=== PATIENT | male | born 1970 | race Caucasian/White ===

== ENCOUNTER 2020-08-23 21:43 | Inpatient (IN) | payer BC ==
[~2020-08-23] VITALS: Ht 175.3 cm; Wt 133.4 kg
[2020-08-23 22:34] LABS: BASO % 0 % (0-3); EOS % 0 % (0-3); HEMATOCRIT 41.5 % (39.0-53.0); HEMOGLOBIN 14.2 g/dL (13.0-17.5); LYMPH # 0.9 x10^3/uL (1.0-4.8); LYMPH % 9 % (24-48); MEAN CORPUSCULAR HEMOGLOBIN 29 pg (25-35); MEAN CORPUSCULAR HGB CONC 34 g/dL (31-37); MEAN CORPUSCULAR VOLUME 84 fL (79-100); MONO # 0.4 x10^3/uL (0.0-1.1); MONO % 4 % (0-9); NEUT # 9.1 x10^3/uL (1.8-7.7); NEUT % 87 % (31-73); PLATELET COUNT 244 x10^3/uL (140-400); RED BLOOD COUNT 4.93 x10^6/uL (4.30-5.70); RED CELL DISTRIBUTION WIDTH 13.6 % (11.5-14.5); WHITE BLOOD COUNT 10.4 x10^3/uL (4.0-11.0)
[2020-08-23 22:45] LABS: CALCIUM 8.7 mg/dL (8.5-10.1); CREATININE 1.1 mg/dL (0.7-1.3); GFR 70.9
[2020-08-23 22:51] LABS: ALBUMIN 2.9 g/dL (3.4-5.0); ALBUMIN/GLOBULIN RATIO 0.6 (1.0-1.7); TOTAL BILIRUBIN 0.5 mg/dL (0.2-1.0); TOTAL PROTEIN 7.5 g/dL (6.4-8.2)
[2020-08-23 22:55] LABS: % BANDS 1 % (0-9); % LYMPHS 8 % (24-48); % MONOS 3 % (0-10); % SEGS 88 % (35-66); PLT ESTIMATE ADEQUATE (ADEQUATE)
--- NOTE | 2020-08-23 22:56 | RAD ---
INDICATION: Reason: SHORT OF BREATH COVID 19 + / Spl. Instructions: / History: COMPARISON: None. FINDINGS: Single view of chest obtained. Hypoexpanded lungs. Multifocal opacities throughout the bilateral lungs. Cardiomediastinal silhouette is unremarkable. IMPRESSION: * Moderate pulmonic opacities bilaterally which could be from multifocal infiltrate. Edema could als o have a similar appearance. Electronically signed by: Tristen Duarte MD (08/23/2020 10:53 PM) [id number]
[2020-08-23 22:59] LABS: BASE EXCESS COOX -2 mmol/L (-3-3); HCO3 COOX 21 mmol/L (21-28); METHEMOGLOBIN 0.3 % (0.0-1.9); OXYHEMOGLOBIN 88.6 %; PCO2 COOX 32 mmHg (35-46); PO2 COOX 54 mmHg (75-108); SAT O2 COOX 89 % (92-99)
[2020-08-23] MEDS ORDERED: cefTRIAXone IV Push 1 GM VIAL. IVP ONE (23:45)
[2020-08-23] MEDS ORDERED: DEXAMETHASONE SOD PHOS 20 MG/5 ML VIAL. IV ONE (23:45)
[2020-08-23] MEDS ORDERED: IOHEXOL 350 MG/ML 100 ML VIAL. IV ONE (23:45)
[2020-08-23] MEDS ORDERED: CONTRAST GIVEN. MC PRN (23:45)
[2020-08-23] MEDS ORDERED: AZITHRMYCN 500MG IVPB FOR OMNI 250 ML IV ONE (23:45)
[2020-08-24] VITALS (7 sets, daily range): BP systolic 106–144; BP diastolic 68–87
--- NOTE | 2020-08-24 00:10 | RAD ---
INDICATION: Reason: POSITIVE D-DIMER, HYPOXIA, SHORT OF BREATH / Spl. Instructions: / History: COMPARISON: None. TECHNIQUE: Axial CT images obtained through the chest. Intravenous contrast utilized. Angiogram 3D images proce ssed per protocol. One or more of the following individualized dose reduction techniques were utilized for this examinat ion: 1. Automated exposure control; 2. Adjustment of the mA and/or kV according to patient size; 3 . Use of iterative reconstruction technique. FINDINGS: Multifocal opacities throughout the bilateral lungs including groundglass and nodular component. The liver is partially seen and appears low density which can be seen with fatty infiltration. There are some prominent lymph nodes within the mediastinum and hilum. No evidence of thoracic aortic aneurysm with portion of ascending thoracic aorta obscured by motion. Nondiagnostic evaluation for pulmonary embolus secondary to motion and minimal contrast within the pu lmonary arteries. Degenerative changes of the spine. IMPRESSION: Multifocal opacities throughout the bilateral lungs. Differential considerations would include bilate ral infection including from viral etiology. A component of edema is not excluded given the groundgla ss component. Liver is low density which can be seen with fatty infiltration. Nondiagnostic evaluation for pulmonary embolus secondary to almost no contrast within the pulmonary a rteries and motion. Prominent lymph nodes in the mediastinum and hilum could be reactive to the pulmonic process Electronically signed by: Tristen Duarte MD (08/24/2020 12:08 AM) [id number]
[2020-08-24] MEDS ORDERED: ONDANSETRON PF 4 MG/2 ML VIAL. IVP ONE (00:30)
[2020-08-24] MEDS ORDERED: diphenhydrAMINE 50 MG/ML VIAL IVP ONE (00:30)
--- NOTE | 2020-08-24 00:48 | PHYS DOC ---
General Adult EDM: Chief Complaint: SHORTNESS OF BREATH HPI: HPI: Patient is a 50 year old male presents to the emergency department stating that he tested positive for the COVID-19 virus on 13 August, patient states that he felt general malaise with fevers and cough for the first week but then noticed he started getting worse. Patient states that he this morning he felt at is worse, stated that he felt like he could not breathe, was constantly having a nonproductive cough, hurt his chest when he coughed. Patient states he felt a little nauseated, and he came into the emergency department for evaluation. Patient denies chest pain when he is not coughing, denies abdominal pain, diarrhea, nasal congestion, or chest congestion. Patient states he has had off-and-on fever and chills at home however he has not taken his temperature when he was at home. Patient denies any rashes of his skin, denies any loss of taste or loss of smell. Patient states he has had off-and-on headaches however does not have a headache at this time. Review of Systems: Review of Systems: 14 body systems of review of systems have been reviewed. See HPI for pertinent positives and negative responses, otherwise all other systems are negative, nonpertinent or noncontributory. Heart Score: HEART Score for Chest Pain: HEART Score for Chest Pain Response (Comments) Value History Slighlty/Non-Suspicious 0 ECG Normal 0 Age >45 - < 65 1 Risk Factors No Risk Factors 0 Troponin < Normal Limit 0 Total 1 Risk Factors: Risk Factors: DM, Current or recent (<one month) smoker, HTN, HLP, family history of CAD, obesity. Risk Scores: Score 0 - 3: 2.5% MACE over next 6 weeks - Discharge Home Score 4 - 6: 20.3% MACE over next 6 weeks - Admit for Clinical Observation Score 7 - 10: 72.7% MACE over next 6 weeks - Early Invasive Strategies Current Medications: Current Medications Medications (Trade) Dose Ordered Sig/Rosa Start Time Stop Time Status Last Admin Dose Admin Azithromycin 250 ml @ 250 mls/hr 1X ONCE 08/23/20 23:45 08/24/20 00:44 DC 08/24/20 00:29 250 MLS/HR Ceftriaxone Sodium (Rocephin) 1 gm 1X ONCE 08/23/20 23:45 08/23/20 23:46 DC 08/24/20 00:28 1 GM Dexamethasone Sodium Phosphate (Decadron) 10 mg 1X ONCE 08/23/20 23:45 08/23/20 23:46 DC 08/24/20 00:28 10 MG Diphenhydramine HCl (Benadryl) 25 mg 1X ONCE 08/24/20 00:30 08/24/20 00:31 DC 08/24/20 00:28 25 MG Info (CONTRAST GIVEN -- Rx MONITORING) 1 each PRN DAILY PRN 08/23/20 23:45 08/25/20 23:44 Iohexol (Omnipaque 350 Mg/ml) 100 ml 1X ONCE 08/23/20 23:45 08/23/20 23:46 DC 08/23/20 23:55 100 ML Ondansetron HCl (Zofran) 4 mg 1X ONCE 08/24/20 00:30 08/24/20 00:31 DC 08/24/20 00:29 4 MG Allergies: Allergies: Allergies Coded Allergies Type Severity Reaction Last Updated Verified Penicillins Allergy Severe Anaphylaxis 08/23/20 Yes Physical Exam: PE: Constitutional: Well developed, well nourished, no acute distress, non-toxic appearance. Patient in mild respiratory distress with cough during physical examination. Patient's O2 sat was 85 on room air and was placed on 2 L per nasal cannula. HENT: Normocephalic, atraumatic, bilateral external ears normal, oropharynx moist, no oral exudates, nose normal. Eyes: PERRLA, EOMI, conjunctiva normal, no discharge. Neck: Normal range of motion, no tenderness, supple, no stridor. Cardiovascular:Heart rate regular rhythm, no murmur, heart sounds S1-S2. Lungs & Thorax: Bilateral breath sounds diminished in all lung kee, no other adventitious lung sounds appreciated. Abdomen: Bowel sounds normal, soft, no tenderness, no masses, no pulsatile masses. Skin: Warm, dry, no erythema, no rash. Back: No tenderness, no CVA tenderness. Extremities: No tenderness, no cyanosis, no clubbing, ROM intact, no edema. Neurologic: Alert and oriented X 3, normal motor function, normal sensory function, no focal deficits noted. Psychologic: Affect normal, judgement normal, mood normal. Current Patient Data: Labs: Laboratory Tests Test 08/23/20 22:20 08/23/20 22:45 White Blood Count 10.4 x10^3/uL (4.0-11.0) Red Blood Count 4.93 x10^6/uL (4.30-5.70) Hemoglobin 14.2 g/dL (13.0-17.5) Hematocrit 41.5 % (39.0-53.0) Mean Corpuscular Volume 84 fL (79-100) Mean Corpuscular Hemoglobin 29 pg (25-35) Mean Corpuscular Hemoglobin Concent 34 g/dL (31-37) Red Cell Distribution Width 13.6 % (11.5-14.5) Platelet Count 244 x10^3/uL (140-400) Neutrophils (%) (Auto) 87 % (31-73) H Lymphocytes (%) (Auto) 9 % (24-48) L Monocytes (%) (Auto) 4 % (0-9) Eosinophils (%) (Auto) 0 % (0-3) Basophils (%) (Auto) 0 % (0-3) Neutrophils # (Auto) 9.1 x10^3/uL (1.8-7.7) H Lymphocytes # (Auto) 0.9 x10^3/uL (1.0-4.8) L Monocytes # (Auto) 0.4 x10^3/uL (0.0-1.1) Eosinophils # (Auto) 0.0 x10^3/uL (0.0-0.7) Basophils # (Auto) 0.0 x10^3/uL (0.0-0.2) Segmented Neutrophils % 88 % (35-66) H Band Neutrophils % 1 % (0-9) Lymphocytes % 8 % (24-48) L Monocytes % 3 % (0-10) Platelet Estimate Adequate (ADEQUATE) D-Dimer (Doreen) 1.24 ug/mlFEU (0.00-0.50) H Sodium Level 142 mmol/L (136-145) Potassium Level 3.0 mmol/L (3.5-5.1) L Chloride Level 104 mmol/L (98-107) Carbon Dioxide Level 24 mmol/L (21-32) Anion Gap 14 (6-14) Blood Urea Nitrogen 18 mg/dL (8-26) Creatinine 1.1 mg/dL (0.7-1.3) Estimated GFR (Cockcroft-Gault) 70.9 BUN/Creatinine Ratio 16 (6-20) Glucose Level 168 mg/dL (70-99) H Lactic Acid Level 1.7 mmol/L (0.4-2.0) Calcium Level 8.7 mg/dL (8.5-10.1) Total Bilirubin 0.5 mg/dL (0.2-1.0) Aspartate Amino Transferase (AST) 27 U/L (15-37) Alanine Aminotransferase (ALT) 35 U/L (16-63) Alkaline Phosphatase 70 U/L (46-116) Troponin I Quantitative < 0.017 ng/mL (0.000-0.055) QX-Ryk-T-Type Natriuretic Peptide 61 pg/mL (0-124) Total Protein 7.5 g/dL (6.4-8.2) Albumin 2.9 g/dL (3.4-5.0) L Albumin/Globulin Ratio 0.6 (1.0-1.7) L O2 Saturation 89 % (92-99) L Arterial Blood pH 7.44 (7.35-7.45) Arterial Blood pCO2 at Patient Temp 32 mmHg (35-46) L Arterial Blood pO2 at Patient Temp 54 mmHg (75-108) L Arterial Blood HCO3 21 mmol/L (21-28) Arterial Blood Base Excess -2 mmol/L (-3-3) Oxyhemoglobin 88.6 % Methemoglobin 0.3 % (0.0-1.9) Carbon Monoxide, Quantitative 0.2 % (0.0-1.9) FiO2 28 (2l nc) Laboratory Tests 08/23/20 22:20 Laboratory Tests 08/23/20 22:20 Vital Signs: Vital Signs Date Time Temp Pulse Resp B/P (MAP) Pulse Ox O2 Delivery O2 Flow Rate FiO2 08/23/20 22:36 104 20 136/73 (94) 92 Nasal Cannula 2.0 EKG: EKG: EKG performed at 2213 per ED nursing staff, sinus tachycardia without other ectopy, WI interval 0.128, QTc interval 0.442, no acute STEMI, no ACS, no acute ischemia appreciated, EKG interpreted by ED attending physician Dr. Elizalde. Radiology/Procedures: Radiology/Procedures: PATIENT: PARMINDER LROENZO JACCOUNT: [id number] : 1970 LOCATION: ER AGE: 50 SEX: M EXAM STATUS: REG ER ORD. PHYSICIAN: AUREA ELIZALDE APRN REASON: POSITIVE D-DIMER, HYPOXIA, SHORT OF BREATH PROCEDURE: CT ANGIOGRAPHY CHEST INDICATION: Reason: POSITIVE D-DIMER, HYPOXIA, SHORT OF BREATH / Spl. Instructions: / History: COMPARISON: None. TECHNIQUE: Axial CT images obtained through the chest. Intravenous contrast utilized. Angiogram 3D images processed per protocol. One or more of the following individualized dose reduction techniques were utilized for this examination: 1. Automated exposure control; 2. Adjustment of the mA and/or kV according to patient size; 3. Use of iterative reconstruction technique. FINDINGS: Multifocal opacities throughout the bilateral lungs including groundglass and nodular component. The liver is partially seen and appears low density which can be seen with fatty infiltration. There are some prominent lymph nodes within the mediastinum and hilum. No evidence of thoracic aortic aneurysm with portion of ascending thoracic aorta obscured by motion. Nondiagnostic evaluation for pulmonary embolus secondary to motion and minimal contrast within the pulmonary arteries. Degenerative changes of the spine. IMPRESSION: Multifocal opacities throughout the bilateral lungs. Differential considerations would include bilateral infection including from viral etiology. A component of edema is not excluded given the groundglass component. Liver is low density which can be seen with fatty infiltration. Nondiagnostic evaluation for pulmonary embolus secondary to almost no contrast within the pulmonary arteries and motion. Prominent lymph nodes in the mediastinum and hilum could be reactive to the pulmonic process Electronically signed by: Belen Edwards MD (08/24/2020 12:08 AM) [id number] DICTATED and SIGNED BY: BELEN EDWARDS MD DATE: 08/23/20 [id number] PATIENT: PARMINDER LORENZOCOUNT: [id number] : 1970 LOCATION: ER AGE: 50 SEX: M EXAM STATUS: REG ER ORD. PHYSICIAN: AUREA ELIZALDE APRN REASON: SHORT OF BREATH COVID 19 + PROCEDURE: CHEST AP ONLY INDICATION: Reason: SHORT OF BREATH COVID 19 + / Spl. Instructions: / History: COMPARISON: None. FINDINGS: Single view of chest obtained. Hypoexpanded lungs. Multifocal opacities throughout the bilateral lungs. Cardiomediastinal silhouette is unremarkable. IMPRESSION: * Moderate pulmonic opacities bilaterally which could be from multifocal infiltrate. Edema could also have a similar appearance. Electronically signed by: Belen Edwards MD (08/23/2020 10:53 PM) [id number] DICTATED and SIGNED BY: BELEN EDWARDS MD DATE: 08/23/20 [id number] Course & Med Decision Making: Course & Med Decision Making Pertinent Labs and Imaging studies reviewed. (See chart for details) 52-year-old male, vital signs reviewed, presents emergency department for worsening symptoms of his COVID-19 virus that he was diagnosed with on 13 August 2020. ER work-up was initiated: EKG, cardiac enzymes, CBC, CMP, D- dimer, blood cultures x2, lactic acid. 1 view chest x-ray. Patient's lactic acid negative, D-dimer however was positive and elevated, a CT angio chest was ordered. 1 view chest x-ray concerning for bilateral lobe pneumonia. Patient started on 10 mg Decadron IV, 1 g of Rocephin IV, 500 mg IV Zithromax. Patient had an allergy 20 years ago to penicillin, is unsure whether it was anaphylaxis or not, patient denied having breathing problems with this allergic reaction as far she can recall, related to this the patient was pretreated with 25 mg IV Benadryl prior to IV Rocephin given. Patient's ABG concerning PO2 of 53.5 on 2 L with an O2 sat of 97% per nasal cannula, patient's O2 administration was increased to nonrebreather mask. CT angio chest was inconclusive for pulmonary embolus, discussed case with ED attending Dr. Elizalde who agreed patient should be admitted to the hospital for community-acquired pneumonia, COVID-19 positive, hypoxia. Patient was admitted to med-telemetry under HIMS Dr. Thompson who will assume care at this time. Patient was COVID-19 positive, at all times when around patient I wore N95 mask, goggles, face shield, PPE protective gown and gloves, there was a air purifier in the room. Dragon Disclaimer: Dragon Disclaimer: This electronic medical record was generated, in whole or in part, using a voice recognition dictation system. Departure Departure Impression: Primary Impression: COVID-19 Additional Impressions: Hypoxia Community acquired pneumonia Qualified Codes: J18.9 - Pneumonia, unspecified organism Bilateral pneumonia Qualified Codes: J18.9 - Pneumonia, unspecified organism Disposition: ADMITTED INPT THIS HOSP Admitting Physician[facility] Condition: GUARDED Referrals: NO PCP (PCP) AUREA ELIZALDE APRN Aug 24, 2020 00:48
[2020-08-24] MEDS: fentaNYL PF VIAL 100 MCG/2 ML VIAL IVP PRN ×3 (01:12→14:23)
[2020-08-24] MEDS ORDERED: MAGNESIUM HYDROXIDE 2,400 MG/30 ML ORAL.SUSP. PO PRN (08:45)
[2020-08-24] MEDS ORDERED: ONDANSETRON PF 4 MG/2 ML VIAL. IVP PRN (08:45)
[2020-08-24] MEDS ORDERED: BISACODYL 10 MG SUPP.RECT. PR PRN (08:45)
[2020-08-24] MEDS ORDERED: CALCIUM CARBONATE 500 MG TAB.CHEW PO PRN (08:45)
[2020-08-24] MEDS ORDERED: LACTULOSE 20 GM/30 ML SOLUTION. PO PRN (08:45)
[2020-08-24] MEDS ORDERED: MAG HYDROX/ALUMINUM HYD/SIMETH 30 ML ORAL.SUSP PO PRN (08:45)
[2020-08-24] MEDS ORDERED: ZOLPIDEM 5 MG TABLET. PO PRN (08:45)
[2020-08-24] MEDS: SENNOSIDES/DOCUSATE 8.6/50MG TABLET. PO SCH ×2 (10:12→20:57)
[2020-08-24] MEDS: CHOLECALCIFEROL (VITAMIN D3) 1,000 UNIT TABLET PO SCH (10:12)
[2020-08-24] MEDS: ASCORBIC ACID 500 MG TABLET PO SCH ×3 (10:12→20:57)
[2020-08-24] MEDS: ZINC SULFATE 220 MG CAPSULE. PO SCH (10:12)
[2020-08-24] MEDS: ENOXAPARIN 40 MG/0.4 ML SYRINGE. SQ SCH ×2 (10:13→20:57)
--- NOTE | 2020-08-24 11:28 | PDOC1 ---
History and Physical Date of Admission Date of Admission August 24, 2020 Identification/Chief Complaint Chief Complaint I have Covid Source Source: Chart review, Patient History of Present Illness History of Present Illness Patient is a 50-year-old gentleman who was in his usual state of health until approximately August 13 even a couple of days prior to that he felt generalized malaise headache upper respiratory tract infection symptoms finally got tested for COVID-19 and his result came back positive on August 13. The patient was given supportive measures at home and he tried to self medicate with Tylenol vitamins and staying well-hydrated nevertheless the day prior to his admission he started complaining of worsening cough he had not required oxygen at home but after a coughing spell which brought upon purulent looking mucus his oxygen levels that he had been checking at home and had been staying in the 95% range dropped into the 70s reason why he decided to come to our emergency department for further evaluation and treatment. Given the acuity of his presentation we are asked to admit since the patient is requiring 15 L of oxygen at this point. The patient denies any slurred speech no dysphagia odynophagia no focal neurological deficits no chest pain palpitations, worsening shortness of breath has been reported, he denies nausea but due to the coughing spell he vomited on one occasion. No hematemesis no hematochezia no black tarry stools have been reported no urinary symptoms no other complaints voiced. All concerns addressed to the best my abilities plan of care explained in detail reassurance provided Past Medical History Past Medical History No past medical history Past Surgical History Past Surgical History: No pertinent history Family History Family History: No Significant Social History Smoke: No ALCOHOL: none Drugs: None Current Problem List Problem List Problems Medical Problems: (1) Bilateral pneumonia Status: Acute (2) Community acquired pneumonia Status: Acute (3) COVID-19 Status: Acute (4) Hypoxia Status: Acute Current Medications Current Medications Current Medications Medications (Trade) Dose Ordered Sig/Rosa Start Time Stop Time Status Last Admin Dose Admin Al Hydroxide/Mg Hydroxide (Mylanta Plus Xs) 30 ml PRN Q3HRS PRN 08/24/20 08:45 Ascorbic Acid (Vitamin C) 500 mg TID 08/24/20 09:00 08/24/20 10:12 500 MG Azithromycin 250 ml @ 250 mls/hr 1X ONCE 08/23/20 23:45 08/24/20 00:44 DC 08/24/20 00:29 250 MLS/HR Azithromycin 500 mg/Sodium Chloride 250 ml @ 250 mls/hr Q24H 08/24/20 22:00 08/27/20 21:59 Bisacodyl (Dulcolax Supp) 10 mg PRN DAILY PRN 08/24/20 08:45 Calcium Carbonate/ Glycine (Tums) 500 mg PRN Q3HRS PRN 08/24/20 08:45 Ceftriaxone Sodium (Rocephin) 1 gm Q24H 08/24/20 22:00 Dexamethasone Sodium Phosphate (Decadron) 10 mg 1X ONCE 08/23/20 23:45 08/23/20 23:46 DC 08/24/20 00:28 10 MG Diphenhydramine HCl (Benadryl) 25 mg 1X ONCE 08/24/20 00:30 08/24/20 00:31 DC 08/24/20 00:28 25 MG Enoxaparin Sodium (Lovenox 40mg Syringe) 40 mg Q12H 08/24/20 09:00 08/24/20 10:13 40 MG Fentanyl Citrate (Fentanyl 2ml Vial) 50 mcg PRN Q4HRS PRN 08/24/20 01:00 08/24/20 10:13 50 MCG Info (CONTRAST GIVEN -- Rx MONITORING) 1 each PRN DAILY PRN 08/23/20 23:45 08/25/20 23:44 Iohexol (Omnipaque 350 Mg/ml) 100 ml 1X ONCE 08/23/20 23:45 08/23/20 23:46 DC 08/23/20 23:55 100 ML Lactulose (Lactulose) 20 gm PRN Q12HR PRN 08/24/20 08:45 Magnesium Hydroxide (Milk Of Magnesia) 2,400 mg PRN Q12HR PRN 08/24/20 08:45 Ondansetron HCl (Zofran) 4 mg PRN Q6HRS PRN 08/24/20 08:45 Senna/Docusate Sodium (Senna Plus) 1 tab BID 08/24/20 09:00 08/24/20 10:12 1 TAB Vitamin D (Vitamin D3) 2,000 unit DAILY 08/24/20 09:00 08/24/20 10:12 2,000 UNIT Zinc Sulfate (Orazinc) 220 mg DAILY 08/24/20 09:00 08/24/20 10:12 220 MG Zolpidem Tartrate (Ambien) 5 mg PRN QHS PRN 08/24/20 08:45 Allergies Allergies Allergies Coded Allergies Type Severity Reaction Last Updated Verified Penicillins Allergy Severe Anaphylaxis 08/23/20 Yes ROS Review of System CONSTITUTIONAL: No fever or chills EYES: No recent changes SKIN: No rash or itching CARDIOVASCULAR: No chest pain, syncope, palpitations, or edema RESPIRATORY: No SOB or cough GASTROINTESTINAL: No nausea, vomiting or abdominal pain NEUROLOGICAL: No headaches or weakness ENDOCRINE: No cold or heat intolerance GENITOURINARY: No urgency or frequency of urination MUSCULOSKELETAL: No back pain or joint pain LYMPHATICS: No enlarged lymph nodes PSYCHIATRIC: No anxiety or depression Physical Exam Physical Exam GEN.: No apparent distress. Alert and oriented. HEENT: Head is normocephalic, atraumatic NECK: Supple. LUNGS: Clear to auscultation. HEART: RRR, S1, S2 present. Peripheral pulses intact ABDOMEN: Soft, nontender. Positive bowel sounds. EXTREMITIES: Without any cyanosis. NEUROLOGIC: Normal speech, normal tone PSYCHIATRIC: Normal affect, normal mood. SKIN: No ulcerations Vitals Vitals Vital Signs Date Time Temp Pulse Resp B/P (MAP) Pulse Ox O2 Delivery O2 Flow Rate FiO2 08/24/20 10:13 94 NonRebreather Mask 15.0 08/24/20 07:00 97.1 96 20 140/74 (96) 97.1 Labs Labs Laboratory Tests Test 08/23/20 22:20 08/23/20 22:45 White Blood Count 10.4 x10^3/uL (4.0-11.0) Red Blood Count 4.93 x10^6/uL (4.30-5.70) Hemoglobin 14.2 g/dL (13.0-17.5) Hematocrit 41.5 % (39.0-53.0) Mean Corpuscular Volume 84 fL (79-100) Mean Corpuscular Hemoglobin 29 pg (25-35) Mean Corpuscular Hemoglobin Concent 34 g/dL (31-37) Red Cell Distribution Width 13.6 % (11.5-14.5) Platelet Count 244 x10^3/uL (140-400) Neutrophils (%) (Auto) 87 % (31-73) Lymphocytes (%) (Auto) 9 % (24-48) Monocytes (%) (Auto) 4 % (0-9) Eosinophils (%) (Auto) 0 % (0-3) Basophils (%) (Auto) 0 % (0-3) Neutrophils # (Auto) 9.1 x10^3/uL (1.8-7.7) Lymphocytes # (Auto) 0.9 x10^3/uL (1.0-4.8) Monocytes # (Auto) 0.4 x10^3/uL (0.0-1.1) Eosinophils # (Auto) 0.0 x10^3/uL (0.0-0.7) Basophils # (Auto) 0.0 x10^3/uL (0.0-0.2) Segmented Neutrophils % 88 % (35-66) Band Neutrophils % 1 % (0-9) Lymphocytes % 8 % (24-48) Monocytes % 3 % (0-10) Platelet Estimate Adequate (ADEQUATE) D-Dimer (Doreen) 1.24 ug/mlFEU (0.00-0.50) Sodium Level 142 mmol/L (136-145) Potassium Level 3.0 mmol/L (3.5-5.1) Chloride Level 104 mmol/L (98-107) Carbon Dioxide Level 24 mmol/L (21-32) Anion Gap 14 (6-14) Blood Urea Nitrogen 18 mg/dL (8-26) Creatinine 1.1 mg/dL (0.7-1.3) Estimated GFR (Cockcroft-Gault) 70.9 BUN/Creatinine Ratio 16 (6-20) Glucose Level 168 mg/dL (70-99) Lactic Acid Level 1.7 mmol/L (0.4-2.0) Calcium Level 8.7 mg/dL (8.5-10.1) Total Bilirubin 0.5 mg/dL (0.2-1.0) Aspartate Amino Transf (AST/SGOT) 27 U/L (15-37) Alanine Aminotransferase (ALT/SGPT) 35 U/L (16-63) Alkaline Phosphatase 70 U/L (46-116) Troponin I Quantitative < 0.017 ng/mL (0.000-0.055) SV-Okl-A-Type Natriuretic Peptide 61 pg/mL (0-124) Total Protein 7.5 g/dL (6.4-8.2) Albumin 2.9 g/dL (3.4-5.0) Albumin/Globulin Ratio 0.6 (1.0-1.7) O2 Saturation 89 % (92-99) Arterial Blood pH 7.44 (7.35-7.45) Arterial Blood pCO2 at Patient Temp 32 mmHg (35-46) Arterial Blood pO2 at Patient Temp 54 mmHg (75-108) Arterial Blood HCO3 21 mmol/L (21-28) Arterial Blood Base Excess -2 mmol/L (-3-3) Oxyhemoglobin 88.6 % Methemoglobin 0.3 % (0.0-1.9) Carbon Monoxide, Quantitative 0.2 % (0.0-1.9) FiO2 28 (2l nc) Laboratory Tests Test 08/23/20 22:20 08/23/20 22:45 White Blood Count 10.4 x10^3/uL (4.0-11.0) Red Blood Count 4.93 x10^6/uL (4.30-5.70) Hemoglobin 14.2 g/dL (13.0-17.5) Hematocrit 41.5 % (39.0-53.0) Mean Corpuscular Volume 84 fL (79-100) Mean Corpuscular Hemoglobin 29 pg (25-35) Mean Corpuscular Hemoglobin Concent 34 g/dL (31-37) Red Cell Distribution Width 13.6 % (11.5-14.5) Platelet Count 244 x10^3/uL (140-400) Neutrophils (%) (Auto) 87 % (31-73) Lymphocytes (%) (Auto) 9 % (24-48) Monocytes (%) (Auto) 4 % (0-9) Eosinophils (%) (Auto) 0 % (0-3) Basophils (%) (Auto) 0 % (0-3) Neutrophils # (Auto) 9.1 x10^3/uL (1.8-7.7) Lymphocytes # (Auto) 0.9 x10^3/uL (1.0-4.8) Monocytes # (Auto) 0.4 x10^3/uL (0.0-1.1) Eosinophils # (Auto) 0.0 x10^3/uL (0.0-0.7) Basophils # (Auto) 0.0 x10^3/uL (0.0-0.2) Segmented Neutrophils % 88 % (35-66) Band Neutrophils % 1 % (0-9) Lymphocytes % 8 % (24-48) Monocytes % 3 % (0-10) Platelet Estimate Adequate (ADEQUATE) D-Dimer (Doreen) 1.24 ug/mlFEU (0.00-0.50) Sodium Level 142 mmol/L (136-145) Potassium Level 3.0 mmol/L (3.5-5.1) Chloride Level 104 mmol/L (98-107) Carbon Dioxide Level 24 mmol/L (21-32) Anion Gap 14 (6-14) Blood Urea Nitrogen 18 mg/dL (8-26) Creatinine 1.1 mg/dL (0.7-1.3) Estimated GFR (Cockcroft-Gault) 70.9 BUN/Creatinine Ratio 16 (6-20) Glucose Level 168 mg/dL (70-99) Lactic Acid Level 1.7 mmol/L (0.4-2.0) Calcium Level 8.7 mg/dL (8.5-10.1) Total Bilirubin 0.5 mg/dL (0.2-1.0) Aspartate Amino Transf (AST/SGOT) 27 U/L (15-37) Alanine Aminotransferase (ALT/SGPT) 35 U/L (16-63) Alkaline Phosphatase 70 U/L (46-116) Troponin I Quantitative < 0.017 ng/mL (0.000-0.055) NY-Pdo-B-Type Natriuretic Peptide 61 pg/mL (0-124) Total Protein 7.5 g/dL (6.4-8.2) Albumin 2.9 g/dL (3.4-5.0) Albumin/Globulin Ratio 0.6 (1.0-1.7) O2 Saturation 89 % (92-99) Arterial Blood pH 7.44 (7.35-7.45) Arterial Blood pCO2 at Patient Temp 32 mmHg (35-46) Arterial Blood pO2 at Patient Temp 54 mmHg (75-108) Arterial Blood HCO3 21 mmol/L (21-28) Arterial Blood Base Excess -2 mmol/L (-3-3) Oxyhemoglobin 88.6 % Methemoglobin 0.3 % (0.0-1.9) Carbon Monoxide, Quantitative 0.2 % (0.0-1.9) FiO2 28 (2l nc) VTE Prophylaxis Ordered VTE Prophylaxis Devices: No VTE Pharmacological Prophylaxi: Yes Assessment/Plan Assessment/Plan COVID-19 infection Hypokalemia Hyperglycemia Morbid obesity with a BMI of 45 Moderate malnutrition Moderate dehydration Plan Vitamin C&D Zinc We will start Solu-Medrol 40 mg every 8 hours We will provide broad-spectrum antibiotics empirically for superimposed community-acquired pneumonia with Rocephin and Zithromax Supportive measures and oxygen Further recommendations based on the clinical course DVT prophylaxis with Lovenox Justifications for Admission Other Justification COVID 19 MARIAH LOUIS MD Aug 24, 2020 11:28
[2020-08-24] MEDS ORDERED: DEXTROSE 50% 25 GM / 50ML DISP.SYRIN. IV PRN (11:30)
[2020-08-24 11:56] LABS: INFLUENZA A PATIENT NEGATIVE (NEGATIVE); INFLUENZA B PATIENT NEGATIVE (NEGATIVE)
[2020-08-24] MEDS: INSULIN LISPRO 300 UNITS/3 ML VIAL. SQ SCH ×2 (12:00→17:23)
[2020-08-24] MEDS: methylPREDNISolone SOD SUCC PF 40 MG/ML VIAL. IV SCH ×2 (14:22→20:57)
[2020-08-24] MEDS: AZITHROMYCIN 500 MG in IV NORMAL SALINE 250ML 250 ML IV SCH (20:58)
[2020-08-24] MEDS ORDERED: INSULIN GLARGINE SYRINGE. SQ SCH (21:00)
[2020-08-24] MEDS: POTASSIUM CHLORIDE 20 MEQ TABLET.ER. PO SCH (22:59)
[2020-08-24] MEDS: guaiFENesin ORAL 200 MG/10 ML LIQUID. PO PRN (22:59)
[2020-08-24] MEDS: cefTRIAXone IV Push 1 GM VIAL. IVP SCH (23:00)
[2020-08-24] MEDS: ACETAMINOPHEN 325 MG TABLET. PO PRN (23:21)
[2020-08-25] VITALS (19 sets, daily range): BP systolic 111–168; BP diastolic 61–76
[2020-08-25] MEDS ORDERED: POTASSIUM CHLORIDE 20 MEQ TABLET.ER. PO SCH ×2 (00:30→02:30)
[2020-08-25] MEDS: POTASSIUM CHLORIDE 20 MEQ TABLET.ER. PO SCH ×2 (01:30→04:10)
[2020-08-25] MEDS: fentaNYL PF VIAL 100 MCG/2 ML VIAL IVP PRN ×3 (01:39→20:10)
[2020-08-25 02:08] LABS: HEMOGLOBIN A1C 7.2 % (4.8-5.6)
[2020-08-25] MEDS: guaiFENesin ORAL 200 MG/10 ML LIQUID. PO PRN ×4 (04:20→23:48)
[2020-08-25] MEDS: methylPREDNISolone SOD SUCC PF 40 MG/ML VIAL. IV SCH ×3 (06:18→20:50)
[2020-08-25 07:59] LABS: BASO % 0 % (0-3); EOS % 0 % (0-3); HEMATOCRIT 40.4 % (39.0-53.0); HEMOGLOBIN 13.7 g/dL (13.0-17.5); LYMPH % 7 % (24-48); MEAN CORPUSCULAR HEMOGLOBIN 29 pg (25-35); MEAN CORPUSCULAR HGB CONC 34 g/dL (31-37); MEAN CORPUSCULAR VOLUME 85 fL (79-100); MONO # 0.8 x10^3/uL (0.0-1.1); MONO % 6 % (0-9); NEUT % 87 % (31-73); PLATELET COUNT 335 x10^3/uL (140-400); RED BLOOD COUNT 4.74 x10^6/uL (4.30-5.70); RED CELL DISTRIBUTION WIDTH 13.5 % (11.5-14.5); WHITE BLOOD COUNT 14.8 x10^3/uL (4.0-11.0)
[2020-08-25 08:31] LABS: CALCIUM 9.1 mg/dL (8.5-10.1); GFR 79.1; POTASSIUM 4.4 mmol/L (3.5-5.1)
[2020-08-25 08:37] LABS: MAGNESIUM 2.3 mg/dL (1.8-2.4); PHOSPHORUS 2.9 mg/dL (2.6-4.7)
[2020-08-25 08:54] LABS: LACTATE DEHYDROGENASE 401 U/L (85-227)
[2020-08-25] MEDS: ACETAMINOPHEN 325 MG TABLET. PO PRN (09:45)
[2020-08-25] MEDS: CHOLECALCIFEROL (VITAMIN D3) 1,000 UNIT TABLET PO SCH (09:45)
[2020-08-25] MEDS: ENOXAPARIN 40 MG/0.4 ML SYRINGE. SQ SCH ×2 (09:45→20:52)
[2020-08-25] MEDS: SENNOSIDES/DOCUSATE 8.6/50MG TABLET. PO SCH ×2 (09:45→20:49)
[2020-08-25] MEDS: ZINC SULFATE 220 MG CAPSULE. PO SCH (09:45)
[2020-08-25] MEDS: ASCORBIC ACID 500 MG TABLET PO SCH ×3 (09:45→20:49)
[2020-08-25] MEDS: INSULIN LISPRO 300 UNITS/3 ML VIAL. SQ SCH ×3 (09:59→17:30)
[2020-08-25] MEDS: INSULIN GLARGINE SYRINGE. SQ SCH ×2 (10:18→20:54)
--- NOTE | 2020-08-25 11:21 | PDOC ---
PROGRESS NOTES Date of Service: DATE: 08/25/20 TIME: 11:18 Chief Complaint Chief Complaint COVID-19 infection Acute hypoxemic respiratory failure secondary to the above Hypokalemia Hyperglycemia Morbid obesity with a BMI of 45 Moderate malnutrition Moderate dehydration Plan Vitamin C&D Zinc Solu-Medrol 40 mg every 8 hours We will provide broad-spectrum antibiotics empirically for superimposed community-acquired pneumonia with Rocephin and Zithromax Supportive measures and oxygen will transfer to ICU for Vapotherm consult pulmonology Further recommendations based on the clinical course DVT prophylaxis with Lovenox History of Present Illness History of Present Illness History of Present Illness History of Present Illness Patient is a 50-year-old gentleman who was in his usual state of health until approximately August 13 even a couple of days prior to that he felt generalized malaise headache upper respiratory tract infection symptoms finally got tested for COVID-19 and his result came back positive on August 13. The patient was given supportive measures at home and he tried to self medicate with Tylenol vitamins and staying well-hydrated nevertheless the day prior to his admission he started complaining of worsening cough he had not required oxygen at home but after a coughing spell which brought upon purulent looking mucus his oxygen levels that he had been checking at home and had been staying in the 95% range dropped into the 70s reason why he decided to come to our emergency department for further evaluation and treatment. Given the acuity of his presentation we are asked to admit since the patient is requiring 15 L of oxygen at this point. The patient denies any slurred speech no dysphagia odynophagia no focal neurological deficits no chest pain palpitations, worsening shortness of breath has been reported, he denies nausea but due to the coughing spell he vomited on one occasion. No hematemesis no hematochezia no black tarry stools have been reported no urinary symptoms no other complaints voiced. All concerns addressed to the best my abilities plan of care explained in detail reassurance provided /3: Patient in acute distress seems to be worse compared to yesterday and he refers feeling that his airway is "closing". Patient was try to be put on BiPAP overnight but he felt claustrophobic and worsen his condition. At this point is better that the patient is transferred to the intensive care unit for Vapotherm more support and closer monitoring. Prognosis guarded Vitals Vitals Vital Signs Date Time Temp Pulse Resp B/P (MAP) Pulse Ox O2 Delivery O2 Flow Rate FiO2 08/25/20 08:00 Non-Rebreather 15.0 08/25/20 07:53 97.6 93 22 133/70 (91) 99 97.6 Physical Exam Physical Exam GEN: No apparent distress. Alert and oriented HEENT: Normal cephalic, atraumatic, external auditory canals are patent. Mucous membranes are moist EYES: Extraocular muscles are intact, pupil are equally round and reactive to light and accommodation. MUSCULOSKELETAL: Well developed , well nourished, good range of motion ENDOCRINE: No thyromegaly was palpated LYMPHATICS: No cervical chain or axillary nodes were noted HEMATOPOIETIC: No bruising NECK: Supple, no JVD, no thyromegaly was noted LUNGS: Coarse to auscultation bilaterally with bilateral rhonchi and crackles bilateral lung bases accessory muscle use and increasing work of breathing has been noted HEART: RRR, S!, S2 present. Peripheral pulses intact, no obvious murmurs noted ABDOMEN: Soft, nontender. Positive bowel sounds, no organomegaly, normal bowel sounds EXTREMITIES: Without clubbing, cyanosis, or edema. Pedal pulses intact. Negative Homans sign NEUROLOGIC: Normal speech and tone. A&O x 3, moves all extremities, no obvious focal deficits PSYCHIATRIC: Normal affect, normal mood. Stable SKIN: No ulcerations or rashes, good skin turgor, no jaundice VASCULAR: Good capillary refill, neurovascular bundle appears to be intact Labs LABS Laboratory Tests Test 08/24/20 16:37 08/24/20 19:43 08/25/20 07:31 08/25/20 07:49 Glucose (Fingerstick) 296 mg/dL (70-99) 274 mg/dL (70-99) 266 mg/dL (70-99) White Blood Count 14.8 x10^3/uL (4.0-11.0) Red Blood Count 4.74 x10^6/uL (4.30-5.70) Hemoglobin 13.7 g/dL (13.0-17.5) Hematocrit 40.4 % (39.0-53.0) Mean Corpuscular Volume 85 fL (79-100) Mean Corpuscular Hemoglobin 29 pg (25-35) Mean Corpuscular Hemoglobin Concent 34 g/dL (31-37) Red Cell Distribution Width 13.5 % (11.5-14.5) Platelet Count 335 x10^3/uL (140-400) Neutrophils (%) (Auto) 87 % (31-73) Lymphocytes (%) (Auto) 7 % (24-48) Monocytes (%) (Auto) 6 % (0-9) Eosinophils (%) (Auto) 0 % (0-3) Basophils (%) (Auto) 0 % (0-3) Neutrophils # (Auto) 13.0 x10^3/uL (1.8-7.7) Lymphocytes # (Auto) 1.0 x10^3/uL (1.0-4.8) Monocytes # (Auto) 0.8 x10^3/uL (0.0-1.1) Eosinophils # (Auto) 0.0 x10^3/uL (0.0-0.7) Basophils # (Auto) 0.0 x10^3/uL (0.0-0.2) Sodium Level 142 mmol/L (136-145) Potassium Level 4.4 mmol/L (3.5-5.1) Chloride Level 107 mmol/L (98-107) Carbon Dioxide Level 23 mmol/L (21-32) Anion Gap 12 (6-14) Blood Urea Nitrogen 21 mg/dL (8-26) Creatinine 1.0 mg/dL (0.7-1.3) Estimated GFR (Cockcroft-Gault) 79.1 Glucose Level 293 mg/dL (70-99) Calcium Level 9.1 mg/dL (8.5-10.1) Phosphorus Level 2.9 mg/dL (2.6-4.7) Magnesium Level 2.3 mg/dL (1.8-2.4) Ferritin 816 ng/mL (26-388) Lactate Dehydrogenase 401 U/L (85-227) Procalcitonin 0.11 ng/mL (0.00-0.10) Review of Systems Review of Systems Review of systems pertinent as per HPI otherwise 14 point review of system is negative Assessment and Plan Assessmemt and Plan Problems Medical Problems: (1) Bilateral pneumonia Status: Acute (2) Community acquired pneumonia Status: Acute (3) COVID-19 Status: Acute (4) Hypoxia Status: Acute Comment Review of Relevant I have reviewed the following items kasey (where applicable) has been applied. Labs Laboratory Tests Test 08/23/20 22:20 08/23/20 22:45 08/24/20 11:00 08/24/20 16:37 White Blood Count 10.4 x10^3/uL (4.0-11.0) Red Blood Count 4.93 x10^6/uL (4.30-5.70) Hemoglobin 14.2 g/dL (13.0-17.5) Hematocrit 41.5 % (39.0-53.0) Mean Corpuscular Volume 84 fL (79-100) Mean Corpuscular Hemoglobin 29 pg (25-35) Mean Corpuscular Hemoglobin Concent 34 g/dL (31-37) Red Cell Distribution Width 13.6 % (11.5-14.5) Platelet Count 244 x10^3/uL (140-400) Neutrophils (%) (Auto) 87 % (31-73) Lymphocytes (%) (Auto) 9 % (24-48) Monocytes (%) (Auto) 4 % (0-9) Eosinophils (%) (Auto) 0 % (0-3) Basophils (%) (Auto) 0 % (0-3) Neutrophils # (Auto) 9.1 x10^3/uL (1.8-7.7) Lymphocytes # (Auto) 0.9 x10^3/uL (1.0-4.8) Monocytes # (Auto) 0.4 x10^3/uL (0.0-1.1) Eosinophils # (Auto) 0.0 x10^3/uL (0.0-0.7) Basophils # (Auto) 0.0 x10^3/uL (0.0-0.2) Segmented Neutrophils % 88 % (35-66) Band Neutrophils % 1 % (0-9) Lymphocytes % 8 % (24-48) Monocytes % 3 % (0-10) Platelet Estimate Adequate (ADEQUATE) D-Dimer (Doreen) 1.24 ug/mlFEU (0.00-0.50) Sodium Level 142 mmol/L (136-145) Potassium Level 3.0 mmol/L (3.5-5.1) Chloride Level 104 mmol/L (98-107) Carbon Dioxide Level 24 mmol/L (21-32) Anion Gap 14 (6-14) Blood Urea Nitrogen 18 mg/dL (8-26) Creatinine 1.1 mg/dL (0.7-1.3) Estimated GFR (Cockcroft-Gault) 70.9 BUN/Creatinine Ratio 16 (6-20) Glucose Level 168 mg/dL (70-99) Hemoglobin A1c 7.2 % (4.8-5.6) Lactic Acid Level 1.7 mmol/L (0.4-2.0) Calcium Level 8.7 mg/dL (8.5-10.1) Total Bilirubin 0.5 mg/dL (0.2-1.0) Aspartate Amino Transf (AST/SGOT) 27 U/L (15-37) Alanine Aminotransferase (ALT/SGPT) 35 U/L (16-63) Alkaline Phosphatase 70 U/L (46-116) Troponin I Quantitative < 0.017 ng/mL (0.000-0.055) BT-Szw-K-Type Natriuretic Peptide 61 pg/mL (0-124) Total Protein 7.5 g/dL (6.4-8.2) Albumin 2.9 g/dL (3.4-5.0) Albumin/Globulin Ratio 0.6 (1.0-1.7) O2 Saturation 89 % (92-99) Arterial Blood pH 7.44 (7.35-7.45) Arterial Blood pCO2 at Patient Temp 32 mmHg (35-46) Arterial Blood pO2 at Patient Temp 54 mmHg (75-108) Arterial Blood HCO3 21 mmol/L (21-28) Arterial Blood Base Excess -2 mmol/L (-3-3) Oxyhemoglobin 88.6 % Methemoglobin 0.3 % (0.0-1.9) Carbon Monoxide, Quantitative 0.2 % (0.0-1.9) FiO2 28 (2l nc) Influenza Type A Antigen Negative (NEGATIVE) Influenza Type B Antigen Negative (NEGATIVE) Glucose (Fingerstick) 296 mg/dL (70-99) Test 08/24/20 19:43 08/25/20 07:31 08/25/20 07:49 Glucose (Fingerstick) 274 mg/dL (70-99) 266 mg/dL (70-99) White Blood Count 14.8 x10^3/uL (4.0-11.0) Red Blood Count 4.74 x10^6/uL (4.30-5.70) Hemoglobin 13.7 g/dL (13.0-17.5) Hematocrit 40.4 % (39.0-53.0) Mean Corpuscular Volume 85 fL (79-100) Mean Corpuscular Hemoglobin 29 pg (25-35) Mean Corpuscular Hemoglobin Concent 34 g/dL (31-37) Red Cell Distribution Width 13.5 % (11.5-14.5) Platelet Count 335 x10^3/uL (140-400) Neutrophils (%) (Auto) 87 % (31-73) Lymphocytes (%) (Auto) 7 % (24-48) Monocytes (%) (Auto) 6 % (0-9) Eosinophils (%) (Auto) 0 % (0-3) Basophils (%) (Auto) 0 % (0-3) Neutrophils # (Auto) 13.0 x10^3/uL (1.8-7.7) Lymphocytes # (Auto) 1.0 x10^3/uL (1.0-4.8) Monocytes # (Auto) 0.8 x10^3/uL (0.0-1.1) Eosinophils # (Auto) 0.0 x10^3/uL (0.0-0.7) Basophils # (Auto) 0.0 x10^3/uL (0.0-0.2) Sodium Level 142 mmol/L (136-145) Potassium Level 4.4 mmol/L (3.5-5.1) Chloride Level 107 mmol/L (98-107) Carbon Dioxide Level 23 mmol/L (21-32) Anion Gap 12 (6-14) Blood Urea Nitrogen 21 mg/dL (8-26) Creatinine 1.0 mg/dL (0.7-1.3) Estimated GFR (Cockcroft-Gault) 79.1 Glucose Level 293 mg/dL (70-99) Calcium Level 9.1 mg/dL (8.5-10.1) Phosphorus Level 2.9 mg/dL (2.6-4.7) Magnesium Level 2.3 mg/dL (1.8-2.4) Ferritin 816 ng/mL (26-388) Lactate Dehydrogenase 401 U/L (85-227) Procalcitonin 0.11 ng/mL (0.00-0.10) Laboratory Tests Test 08/24/20 16:37 08/24/20 19:43 08/25/20 07:31 08/25/20 07:49 Glucose (Fingerstick) 296 mg/dL (70-99) 274 mg/dL (70-99) 266 mg/dL (70-99) White Blood Count 14.8 x10^3/uL (4.0-11.0) Red Blood Count 4.74 x10^6/uL (4.30-5.70) Hemoglobin 13.7 g/dL (13.0-17.5) Hematocrit 40.4 % (39.0-53.0) Mean Corpuscular Volume 85 fL (79-100) Mean Corpuscular Hemoglobin 29 pg (25-35) Mean Corpuscular Hemoglobin Concent 34 g/dL (31-37) Red Cell Distribution Width 13.5 % (11.5-14.5) Platelet Count 335 x10^3/uL (140-400) Neutrophils (%) (Auto) 87 % (31-73) Lymphocytes (%) (Auto) 7 % (24-48) Monocytes (%) (Auto) 6 % (0-9) Eosinophils (%) (Auto) 0 % (0-3) Basophils (%) (Auto) 0 % (0-3) Neutrophils # (Auto) 13.0 x10^3/uL (1.8-7.7) Lymphocytes # (Auto) 1.0 x10^3/uL (1.0-4.8) Monocytes # (Auto) 0.8 x10^3/uL (0.0-1.1) Eosinophils # (Auto) 0.0 x10^3/uL (0.0-0.7) Basophils # (Auto) 0.0 x10^3/uL (0.0-0.2) Sodium Level 142 mmol/L (136-145) Potassium Level 4.4 mmol/L (3.5-5.1) Chloride Level 107 mmol/L (98-107) Carbon Dioxide Level 23 mmol/L (21-32) Anion Gap 12 (6-14) Blood Urea Nitrogen 21 mg/dL (8-26) Creatinine 1.0 mg/dL (0.7-1.3) Estimated GFR (Cockcroft-Gault) 79.1 Glucose Level 293 mg/dL (70-99) Calcium Level 9.1 mg/dL (8.5-10.1) Phosphorus Level 2.9 mg/dL (2.6-4.7) Magnesium Level 2.3 mg/dL (1.8-2.4) Ferritin 816 ng/mL (26-388) Lactate Dehydrogenase 401 U/L (85-227) Procalcitonin 0.11 ng/mL (0.00-0.10) Microbiology 08/24/20 Blood Culture - Preliminary, Resulted NO GROWTH AFTER 1 DAY Medications Current Medications Dexamethasone Sodium Phosphate (Decadron) 10 mg 1X ONCE IV Last administered on 08/24/20at 00:28; Start 08/23/20 at 23:45; Stop 08/23/20 at 23:46; Status DC Azithromycin 250 ml @ 250 mls/hr 1X ONCE IV Last administered on 08/24/20at 00:29; Start 08/23/20 at 23:45; Stop 08/24/20 at 00:44; Status DC Ceftriaxone Sodium (Rocephin) 1 gm 1X ONCE IVP Last administered on 08/24/20at 00:28; Start 08/23/20 at 23:45; Stop 08/23/20 at 23:46; Status DC Iohexol (Omnipaque 350 Mg/ml) 100 ml 1X ONCE IV Last administered on 08/23/20at 23:55; Start 08/23/20 at 23:45; Stop 08/23/20 at 23:46; Status DC Info (CONTRAST GIVEN -- Rx MONITORING) 1 each PRN DAILY PRN MC SEE COMMENTS; Start 08/23/20 at 23:45; Stop 08/25/20 at 23:44 Ondansetron HCl (Zofran) 4 mg 1X ONCE IVP Last administered on 08/24/20at 00:29; Start 08/24/20 at 00:30; Stop 08/24/20 at 00:31; Status DC Diphenhydramine HCl (Benadryl) 25 mg 1X ONCE IVP Last administered on 08/24/20at 00:28; Start 08/24/20 at 00:30; Stop 08/24/20 at 00:31; Status DC Fentanyl Citrate (Fentanyl 2ml Vial) 50 mcg PRN Q4HRS PRN IVP SEVERE PAIN 7-10 Last administered on 08/25/20at 01:39; Start 08/24/20 at 01:00 Ondansetron HCl (Zofran) 4 mg PRN Q6HRS PRN IVP NAUSEA/VOMITING; Start 08/24/20 at 08:45 Al Hydroxide/Mg Hydroxide (Mylanta Plus Xs) 30 ml PRN Q3HRS PRN PO HEARTBURN / GAS; Start 08/24/20 at 08:45 Calcium Carbonate/ Glycine (Tums) 500 mg PRN Q3HRS PRN PO UPSET STOMACH; Start 08/24/20 at 08:45 Zolpidem Tartrate (Ambien) 5 mg PRN QHS PRN PO INSOMNIA, MAY REPEAT IN 1HR; Start 08/24/20 at 08:45 Senna/Docusate Sodium (Senna Plus) 1 tab BID PO Last administered on 08/25/20at 09:45; Start 08/24/20 at 09:00 Magnesium Hydroxide (Milk Of Magnesia) 2,400 mg PRN Q12HR PRN PO CONSTIPATION; Start 08/24/20 at 08:45 Lactulose (Lactulose) 20 gm PRN Q12HR PRN PO CONSTIPATION; Start 08/24/20 at 0 8:45 Bisacodyl (Dulcolax Supp) 10 mg PRN DAILY PRN UT CONSTIPATION; Start 08/24/20 at 08:45 Enoxaparin Sodium (Lovenox 40mg Syringe) 40 mg Q12H SQ Last administered on 08/25/20at 09:45; Start 08/24/20 at 09:00 Ceftriaxone Sodium (Rocephin) 1 gm Q24H IVP Last administered on 08/24/20at 23:00; Start 08/24/20 at 22:00 Azithromycin 500 mg/Sodium Chloride 250 ml @ 250 mls/hr Q24H IV Last administered on 08/24/20at 20:58; Start 08/24/20 at 22:00; Stop 08/27/20 at 21:59 Ascorbic Acid (Vitamin C) 500 mg TID PO Last administered on 08/25/20at 09:45; Start 08/24/20 at 09:00 Vitamin D (Vitamin D3) 2,000 unit DAILY PO Last administered on 08/25/20at 09:45; Start 08/24/20 at 09:00 Zinc Sulfate (Orazinc) 220 mg DAILY PO Last administered on 08/25/20 09:45; Start 08/24/20 at 09:00 Methylprednisolone Sodium Succinate (SOLU-Medrol 40MG VIAL) 40 mg Q8HRS IV Last administered on 08/25/20at 06:18; Start 08/24/20 at 14:00 Insulin Glargine (Lantus Syringe) 10 unit QHS SQ Last administered on 08/24/20at 21:12; Start 08/24/20 at 21:00; Stop 08/25/20 at 08:00; Status DC Insulin Human Lispro (HumaLOG) 0-5 UNITS TIDWMEALS SQ Last administered on 08/25/20 09:59; Start 08/24/20 at 12:00 Dextrose (Dextrose 50%-Water Syringe) 12.5 gm PRN Q15MIN PRN IV SEE COMMENTS; Start 08/24/20 at 11:30 Potassium Chloride (Klor-Con) 40 meq Q2HR PO Last administered on 08/25/20at 04:10; Start 08/24/20 at 23:00; Stop 08/25/20 at 02:01; Status DC Potassium Chloride (Klor-Con) 40 meq 1X PO ; Start 08/25/20 at 00:30; Status UNV Potassium Chloride (Klor-Con) 40 meq 1X PO ; Start 08/25/20 at 02:30; Status UNV Guaifenesin (Mucinex) 600 mg BID PO Last administered on 08/25/20at 09:45; Start 08/24/20 at 23:00 Guaifenesin (Robitussin) 200 mg PRN Q4HRS PRN PO COUGH Last administered on 08/25/20 09:45; Start 08/24/20 at 22:30 Acetaminophen (Tylenol) 650 mg PRN Q6HRS PRN PO MILD PAIN / TEMP > 100.3'F Last administered on 08/25/20 09:45; Start 08/24/20 at 23:30 Insulin Glargine (Lantus Syringe) 10 unit BID SQ Last administered on 08/25/20at 10:18; Start 08/25/20 at 09:00 Sterile Water (WATER for RESP) 1,000 ml CONT PRN INH VIA VAPOTHERM DEVICE; Start 08/25/20 at 10:45 Vitals/I & O Vital Sign - Last 24 Hours 08/24/20 08/24/20 08/24/20 08/24/20 11:34 14:23 15:08 19:00 Temp 95.8 97.5 97.5 95.8 97.5 97.5 Pulse 106 99 85 Resp 20 22 22 B/P (MAP) 106/87 (93) 142/78 (99) 117/69 (85) Pulse Ox 89 89 92 92 O2 Delivery NonRebreather Mask NonRebreather Mask NonRebreather Mask NonRebreather Mask O2 Flow Rate 15.0 15.0 15.0 15.0 08/24/20 08/24/20 08/25/20 08/25/20 20:00 23:28 01:39 02:10 Temp 97.1 97.1 Pulse 92 Resp 22 B/P (MAP) 144/75 (98) Pulse Ox 89 O2 Delivery Non-Rebreather NonRebreather Mask Room Air Room Air O2 Flow Rate 15.0 15.0 08/25/20 08/25/20 08/25/20 03:13 07:53 08:00 Temp 97.1 97.6 97.1 97.6 Pulse 80 93 Resp 22 22 B/P (MAP) 116/66 (83) 133/70 (91) Pulse Ox 92 99 O2 Delivery NonRebreather Mask NonRebreather Mask Non-Rebreather O2 Flow Rate 15.0 15.0 15.0 Intake and Output 08/24/20 08/24/20 08/25/20 15:00 23:00 07:00 Intake Total 650 ml 420 ml 220 ml Output Total 700 ml 600 ml Balance -50 ml -180 ml 220 ml Justicifation of Admission Dx: Justifications for Admission: Justification of Admission Dx: Yes Respiratory Failure: Severe Resp Distress MARIAH LOUIS MD Aug 25, 2020 11:21
[2020-08-25 11:28] LABS: BASE EXCESS ABG -3 mmol/L (-3-3); HCO3 ABG 20 mmol/L (21-28); PCO2 ABG 31 mmHg (35-46); PO2 ABG 63 mmHg (75-108); SAT O2 ABG 93 % (92-99)
[2020-08-25 11:30] LABS: FIO2 ABG 100
--- NOTE | 2020-08-25 11:37 | PDOC ---
PULMONARY PROGRESS NOTES DATE: 08/25/20 TIME: 11:36 Vitals Vital Signs Date Time Temp Pulse Resp B/P (MAP) Pulse Ox O2 Delivery O2 Flow Rate FiO2 08/25/20 11:15 99.0 95 28 168/72 (104) 91 NonRebreather Mask 15.0 99.0 Labs Laboratory Tests Test 08/23/20 22:20 08/23/20 22:45 08/24/20 11:00 08/24/20 16:37 White Blood Count 10.4 x10^3/uL (4.0-11.0) Red Blood Count 4.93 x10^6/uL (4.30-5.70) Hemoglobin 14.2 g/dL (13.0-17.5) Hematocrit 41.5 % (39.0-53.0) Mean Corpuscular Volume 84 fL (79-100) Mean Corpuscular Hemoglobin 29 pg (25-35) Mean Corpuscular Hemoglobin Concent 34 g/dL (31-37) Red Cell Distribution Width 13.6 % (11.5-14.5) Platelet Count 244 x10^3/uL (140-400) Neutrophils (%) (Auto) 87 % (31-73) Lymphocytes (%) (Auto) 9 % (24-48) Monocytes (%) (Auto) 4 % (0-9) Eosinophils (%) (Auto) 0 % (0-3) Basophils (%) (Auto) 0 % (0-3) Neutrophils # (Auto) 9.1 x10^3/uL (1.8-7.7) Lymphocytes # (Auto) 0.9 x10^3/uL (1.0-4.8) Monocytes # (Auto) 0.4 x10^3/uL (0.0-1.1) Eosinophils # (Auto) 0.0 x10^3/uL (0.0-0.7) Basophils # (Auto) 0.0 x10^3/uL (0.0-0.2) Segmented Neutrophils % 88 % (35-66) Band Neutrophils % 1 % (0-9) Lymphocytes % 8 % (24-48) Monocytes % 3 % (0-10) Platelet Estimate Adequate (ADEQUATE) D-Dimer (Doreen) 1.24 ug/mlFEU (0.00-0.50) Sodium Level 142 mmol/L (136-145) Potassium Level 3.0 mmol/L (3.5-5.1) Chloride Level 104 mmol/L (98-107) Carbon Dioxide Level 24 mmol/L (21-32) Anion Gap 14 (6-14) Blood Urea Nitrogen 18 mg/dL (8-26) Creatinine 1.1 mg/dL (0.7-1.3) Estimated GFR (Cockcroft-Gault) 70.9 BUN/Creatinine Ratio 16 (6-20) Glucose Level 168 mg/dL (70-99) Hemoglobin A1c 7.2 % (4.8-5.6) Lactic Acid Level 1.7 mmol/L (0.4-2.0) Calcium Level 8.7 mg/dL (8.5-10.1) Total Bilirubin 0.5 mg/dL (0.2-1.0) Aspartate Amino Transf (AST/SGOT) 27 U/L (15-37) Alanine Aminotransferase (ALT/SGPT) 35 U/L (16-63) Alkaline Phosphatase 70 U/L (46-116) Troponin I Quantitative < 0.017 ng/mL (0.000-0.055) EA-Mzz-D-Type Natriuretic Peptide 61 pg/mL (0-124) Total Protein 7.5 g/dL (6.4-8.2) Albumin 2.9 g/dL (3.4-5.0) Albumin/Globulin Ratio 0.6 (1.0-1.7) O2 Saturation 89 % (92-99) Arterial Blood pH 7.44 (7.35-7.45) Arterial Blood pCO2 at Patient Temp 32 mmHg (35-46) Arterial Blood pO2 at Patient Temp 54 mmHg (75-108) Arterial Blood HCO3 21 mmol/L (21-28) Arterial Blood Base Excess -2 mmol/L (-3-3) Oxyhemoglobin 88.6 % Methemoglobin 0.3 % (0.0-1.9) Carbon Monoxide, Quantitative 0.2 % (0.0-1.9) FiO2 28 (2l nc) Influenza Type A Antigen Negative (NEGATIVE) Influenza Type B Antigen Negative (NEGATIVE) Glucose (Fingerstick) 296 mg/dL (70-99) Test 08/24/20 19:43 08/25/20 07:31 08/25/20 07:49 08/25/20 11:17 Glucose (Fingerstick) 274 mg/dL (70-99) 266 mg/dL (70-99) White Blood Count 14.8 x10^3/uL (4.0-11.0) Red Blood Count 4.74 x10^6/uL (4.30-5.70) Hemoglobin 13.7 g/dL (13.0-17.5) Hematocrit 40.4 % (39.0-53.0) Mean Corpuscular Volume 85 fL (79-100) Mean Corpuscular Hemoglobin 29 pg (25-35) Mean Corpuscular Hemoglobin Concent 34 g/dL (31-37) Red Cell Distribution Width 13.5 % (11.5-14.5) Platelet Count 335 x10^3/uL (140-400) Neutrophils (%) (Auto) 87 % (31-73) Lymphocytes (%) (Auto) 7 % (24-48) Monocytes (%) (Auto) 6 % (0-9) Eosinophils (%) (Auto) 0 % (0-3) Basophils (%) (Auto) 0 % (0-3) Neutrophils # (Auto) 13.0 x10^3/uL (1.8-7.7) Lymphocytes # (Auto) 1.0 x10^3/uL (1.0-4.8) Monocytes # (Auto) 0.8 x10^3/uL (0.0-1.1) Eosinophils # (Auto) 0.0 x10^3/uL (0.0-0.7) Basophils # (Auto) 0.0 x10^3/uL (0.0-0.2) Sodium Level 142 mmol/L (136-145) Potassium Level 4.4 mmol/L (3.5-5.1) Chloride Level 107 mmol/L (98-107) Carbon Dioxide Level 23 mmol/L (21-32) Anion Gap 12 (6-14) Blood Urea Nitrogen 21 mg/dL (8-26) Creatinine 1.0 mg/dL (0.7-1.3) Estimated GFR (Cockcroft-Gault) 79.1 Glucose Level 293 mg/dL (70-99) Calcium Level 9.1 mg/dL (8.5-10.1) Phosphorus Level 2.9 mg/dL (2.6-4.7) Magnesium Level 2.3 mg/dL (1.8-2.4) Ferritin 816 ng/mL (26-388) Lactate Dehydrogenase 401 U/L (85-227) Procalcitonin 0.11 ng/mL (0.00-0.10) O2 Saturation 93 % (92-99) Arterial Blood pH 7.43 (7.35-7.45) Arterial Blood pCO2 at Patient Temp 31 mmHg (35-46) Arterial Blood pO2 at Patient Temp 63 mmHg (75-108) Arterial Blood HCO3 20 mmol/L (21-28) Arterial Blood Base Excess -3 mmol/L (-3-3) FiO2 100 Laboratory Tests Test 08/24/20 16:37 08/24/20 19:43 08/25/20 07:31 08/25/20 07:49 Glucose (Fingerstick) 296 mg/dL (70-99) 274 mg/dL (70-99) 266 mg/dL (70-99) White Blood Count 14.8 x10^3/uL (4.0-11.0) Red Blood Count 4.74 x10^6/uL (4.30-5.70) Hemoglobin 13.7 g/dL (13.0-17.5) Hematocrit 40.4 % (39.0-53.0) Mean Corpuscular Volume 85 fL (79-100) Mean Corpuscular Hemoglobin 29 pg (25-35) Mean Corpuscular Hemoglobin Concent 34 g/dL (31-37) Red Cell Distribution Width 13.5 % (11.5-14.5) Platelet Count 335 x10^3/uL (140-400) Neutrophils (%) (Auto) 87 % (31-73) Lymphocytes (%) (Auto) 7 % (24-48) Monocytes (%) (Auto) 6 % (0-9) Eosinophils (%) (Auto) 0 % (0-3) Basophils (%) (Auto) 0 % (0-3) Neutrophils # (Auto) 13.0 x10^3/uL (1.8-7.7) Lymphocytes # (Auto) 1.0 x10^3/uL (1.0-4.8) Monocytes # (Auto) 0.8 x10^3/uL (0.0-1.1) Eosinophils # (Auto) 0.0 x10^3/uL (0.0-0.7) Basophils # (Auto) 0.0 x10^3/uL (0.0-0.2) Sodium Level 142 mmol/L (136-145) Potassium Level 4.4 mmol/L (3.5-5.1) Chloride Level 107 mmol/L (98-107) Carbon Dioxide Level 23 mmol/L (21-32) Anion Gap 12 (6-14) Blood Urea Nitrogen 21 mg/dL (8-26) Creatinine 1.0 mg/dL (0.7-1.3) Estimated GFR (Cockcroft-Gault) 79.1 Glucose Level 293 mg/dL (70-99) Calcium Level 9.1 mg/dL (8.5-10.1) Phosphorus Level 2.9 mg/dL (2.6-4.7) Magnesium Level 2.3 mg/dL (1.8-2.4) Ferritin 816 ng/mL (26-388) Lactate Dehydrogenase 401 U/L (85-227) Procalcitonin 0.11 ng/mL (0.00-0.10) Test 08/25/20 11:17 O2 Saturation 93 % (92-99) Arterial Blood pH 7.43 (7.35-7.45) Arterial Blood pCO2 at Patient Temp 31 mmHg (35-46) Arterial Blood pO2 at Patient Temp 63 mmHg (75-108) Arterial Blood HCO3 20 mmol/L (21-28) Arterial Blood Base Excess -3 mmol/L (-3-3) FiO2 100 Impression . Full consult dictated Discussed with Dr. Durham, transferred to the intensive care unit for Vapotherm Continue current support ALEJANDRA EDDY MD Aug 25, 2020 11:37
--- NOTE | 2020-08-25 12:08 | CONS ---
DATE OF CONSULTATION: 08/25/2020 ATTENDING PHYSICIAN: Tamir Thompson MD REASON FOR CONSULTATION: The patient is seen in pulmonary consultation at the request of Dr. Durham for acute hypoxemic respiratory failure secondary to COVID-19. HISTORY OF PRESENT ILLNESS: The patient is a 50-year-old that was positive for COVID back on the . He was quarantining at home. He did well up until a couple of days ago. He started having increasing shortness of breath, some symptoms of diarrhea, coughing up some purulent secretions. His O2 saturation was found in the Emergency Room to be in the 70s. He was admitted. I was asked to see him in consultation. This morning, the patient was doing slightly worse, as a consequence, I was asked to see him in consultation. He was on the 6th floor when I saw him on the COVID unit, requiring nasal cannula oxygen and nonrebreather. The patient states that overall his symptoms have appeared to be slightly improving. PAST MEDICAL HISTORY: Otherwise, unremarkable. PAST SURGICAL HISTORY: None. ALLERGIES: PENICILLIN. SOCIAL HISTORY: He has never smoked. No significant occupational exposures. MEDICATION: List was reviewed. He is currently on azithromycin, ceftriaxone, Lovenox for DVT, Solu-Medrol 40 IV q. 8 hours. FAMILY HISTORY: Noncontributory. REVIEW OF SYSTEMS: As indicated above, otherwise, a 10-point system was reviewed and negative. PHYSICAL EXAMINATION: VITAL SIGNS: Stable. O2 saturation was greater than 92%. He has been afebrile since admission. HEENT: Eyes: The sclerae were nonicteric. NECK: Jugular venous distention was not elevated. No lymphadenopathy. CHEST: Full expansion. LUNGS: Poor flow with no wheezes. CARDIOVASCULAR: Regular rate and rhythm with S1, S2, no S3. ABDOMEN: Soft, obese. EXTREMITIES: No clubbing, cyanosis or edema. LABORATORY DATA: Influenza screen was negative. Electrolytes were noted. D-dimer was elevated, nonspecific. Arterial blood gas: pH of 7.43, PaCO2 of 31, PaO2 of 63. Electrolytes were noted. CT angiogram was reviewed. There is multifocal opacities bilaterally. There were some lymph nodes that were enlarged. Unfortunately, the contrast was not adequate enough to comment on pulmonary embolism. IMPRESSION: 1. Acute hypoxemic respiratory failure secondary to COVID-19 viral pneumonia. 2. COVID-[address] chest related to COVID-19. 4. Possible gram-positive, gram-negative pneumonia. 5. Hyperglycemia. 6. Morbid obesity. PLAN: 1. Case discussed with Dr. Durham, we will transfer to the Intensive Care Unit. 2. Continue broad spectrum antibiotics. 3. Initiate Vapotherm, the patient did not tolerate BiPAP. 4. Continue steroids. 5. No role for remdesivir in this case. 6. DVT prophylaxis. I do appreciate the privilege in sharing in the patient's care. Total cumulative critical care time from 10:55-11:34 a.m. ALEJANDRA EDDY MD DR: JALEN/ashely JOB#: [id number] / [id number]
[2020-08-25] MEDS: BENZOCAINE/MENTHOL LOZENGE. PO PRN (16:17)
[2020-08-25] MEDS: STERILE WATER for RESP 1,000 ML BAG. INH PRN (20:10)
[2020-08-25] MEDS: AZITHROMYCIN 500 MG in IV NORMAL SALINE 250ML 250 ML IV SCH (20:49)
[2020-08-25] MEDS: LACTOBACILLUS RHAMNOSUS GG 1 CAPSULE. PO SCH (20:49)
[2020-08-25] MEDS: cefTRIAXone IV Push 1 GM VIAL. IVP SCH (20:49)
[2020-08-26] VITALS (25 sets, daily range): BP systolic 118–153; BP diastolic 59–82
[2020-08-26] MEDS: BENZOCAINE/MENTHOL LOZENGE. PO PRN ×3 (02:35→18:03)
[2020-08-26] MEDS: fentaNYL PF VIAL 100 MCG/2 ML VIAL IVP PRN ×5 (02:35→20:35)
[2020-08-26] MEDS: methylPREDNISolone SOD SUCC PF 40 MG/ML VIAL. IV SCH ×3 (05:50→21:25)
[2020-08-26] MEDS: ZINC SULFATE 220 MG CAPSULE. PO SCH (07:26)
[2020-08-26] MEDS: guaiFENesin ORAL 200 MG/10 ML LIQUID. PO PRN ×3 (07:26→17:59)
[2020-08-26] MEDS: ENOXAPARIN 40 MG/0.4 ML SYRINGE. SQ SCH ×2 (07:26→20:22)
[2020-08-26] MEDS: CHOLECALCIFEROL (VITAMIN D3) 1,000 UNIT TABLET PO SCH (07:27)
[2020-08-26] MEDS: SENNOSIDES/DOCUSATE 8.6/50MG TABLET. PO SCH ×2 (07:28→20:23)
[2020-08-26] MEDS: ASCORBIC ACID 500 MG TABLET PO SCH ×3 (07:28→20:23)
[2020-08-26] MEDS: LACTOBACILLUS RHAMNOSUS GG 1 CAPSULE. PO SCH ×2 (07:28→20:22)
[2020-08-26] MEDS: INSULIN GLARGINE SYRINGE. SQ SCH ×3 (07:29→20:34)
[2020-08-26 07:59] LABS: BASO % 0 % (0-3); EOS % 0 % (0-3); HEMATOCRIT 41.5 % (39.0-53.0); HEMOGLOBIN 13.6 g/dL (13.0-17.5); LYMPH # 1.2 x10^3/uL (1.0-4.8); LYMPH % 7 % (24-48); MEAN CORPUSCULAR HEMOGLOBIN 28 pg (25-35); MEAN CORPUSCULAR HGB CONC 33 g/dL (31-37); MEAN CORPUSCULAR VOLUME 86 fL (79-100); MONO # 1.1 x10^3/uL (0.0-1.1); MONO % 6 % (0-9); NEUT # 15.1 x10^3/uL (1.8-7.7); NEUT % 87 % (31-73); PLATELET COUNT 419 x10^3/uL (140-400); RED BLOOD COUNT 4.84 x10^6/uL (4.30-5.70); RED CELL DISTRIBUTION WIDTH 13.3 % (11.5-14.5); WHITE BLOOD COUNT 17.4 x10^3/uL (4.0-11.0)
--- NOTE | 2020-08-26 08:14 | PDOC ---
[facility] PROGRESS NOTE Date of Service DOS: DATE: 08/26/20 TIME: 07:59 Chief Complaint Chief Complaint COVID-19 infection Acute hypoxemic respiratory failure secondary to the above Hypokalemia Hyperglycemia Morbid obesity with a BMI of 45 Moderate malnutrition Moderate dehydration Plan Vitamin C&D Zinc Solu-Medrol 40 mg every 8 hours We will provide broad-spectrum antibiotics empirically for superimposed community-acquired pneumonia with Rocephin and Zithromax Supportive measures and oxygen will transfer to ICU for Vapotherm consult pulmonology Further recommendations based on the clinical course DVT prophylaxis with Lovenox History of Present Illness History of Present Illness Mr Shaffer is a 50-year-old gentleman who was in his usual state of health until approximately August 13 even a couple of days prior to that he felt generalized malaise headache upper respiratory tract infection symptoms finally got tested for COVID-19 and his result came back positive on August 13. The patient was given supportive measures at home and he tried to self medicate with Tylenol vitamins and staying well-hydrated nevertheless the day prior to his admission he started complaining of worsening cough he had not required oxygen at home but after a coughing spell which brought upon purulent looking mucus his oxygen levels that he had been checking at home and had been staying in the 95% range dropped into the 70s reason why he decided to come to our emergency department for further evaluation and treatment. Given the acuity of his presentation we are asked to admit since the patient is requiring 15 L of oxygen at this point. The patient denies any slurred speech no dysphagia odynophagia no focal neurological deficits no chest pain palpitations, worsening shortness of breath has been reported, he denies nausea but due to the coughing spell he vomited on one occasion. No hematemesis no hematochezia no black tarry stools have been reported no urinary symptoms no other complaints voiced. All concerns addressed to the best my abilities plan of care explained in detail reassurance provided 2/3: Patient in acute distress seems to be worse compared to yesterday and he re fers feeling that his airway is "closing". Patient was try to be put on BiPAP overnight but he felt claustrophobic and worsen his condition. Transferred to the intensive care unit for Vapotherm Afebrile. On 30l/min vapotherm currently. Coughing significantly, productive. No chest pain. Has good appetite. Feels better laying on his right side. Plan: Start remdesivir CXR - will f/u, may need lasix x1 Albuterol prn for bronchospasm Vitals/I&O Vitals/I&O: Vital Signs Date Time Temp Pulse Resp B/P (MAP) Pulse Ox O2 Delivery O2 Flow Rate FiO2 08/26/20 07:51 Nasal Cannula 30.0 08/26/20 07:27 28 86 08/26/20 07:00 99.5 80 136/75 (95) 99.5 I & O 08/25/20 08/25/20 08/26/20 15:00 23:00 07:00 Intake Total 500 ml 950 ml 500 ml Output Total 0 ml 500 ml 400 ml Balance 500 ml 450 ml 100 ml Physical Exam Physical Exam: GEN: No apparent distress. Alert and oriented HEENT: Normal cephalic, atraumatic, external auditory canals are patent. Mucous membranes are moist EYES: Extraocular muscles are intact, pupil are equally round and reactive to light and accommodation. MUSCULOSKELETAL: Well developed , well nourished, good range of motion ENDOCRINE: No thyromegaly was palpated LYMPHATICS: No cervical chain or axillary nodes were noted HEMATOPOIETIC: No bruising NECK: Supple, no JVD, no thyromegaly was noted LUNGS: Coarse to auscultation bilaterally with bilateral rhonchi and crackles bilateral lung bases accessory muscle use and increasing work of breathing has been noted HEART: RRR, S!, S2 present. Peripheral pulses intact, no obvious murmurs noted ABDOMEN: Soft, nontender. Positive bowel sounds, no organomegaly, normal bowel sounds EXTREMITIES: Without clubbing, cyanosis, or edema. Pedal pulses intact. Negative Homans sign NEUROLOGIC: Normal speech and tone. A&O x 3, moves all extremities, no obvious focal deficits PSYCHIATRIC: Normal affect, normal mood. Stable SKIN: No ulcerations or rashes, good skin turgor, no jaundice VASCULAR: Good capillary refill, neurovascular bundle appears to be intact Labs Labs: Laboratory Tests Test 08/25/20 11:17 08/25/20 12:22 08/25/20 17:26 08/25/20 21:16 O2 Saturation 93 % (92-99) Arterial Blood pH 7.43 (7.35-7.45) Arterial Blood pCO2 at Patient Temp 31 mmHg (35-46) Arterial Blood pO2 at Patient Temp 63 mmHg (75-108) Arterial Blood HCO3 20 mmol/L (21-28) Arterial Blood Base Excess -3 mmol/L (-3-3) FiO2 100 Glucose (Fingerstick) 271 mg/dL (70-99) 231 mg/dL (70-99) 291 mg/dL (70-99) Assessment and Plan Assessmemt and Plan Problems Medical Problems: (1) Bilateral pneumonia Status: Acute (2) Community acquired pneumonia Status: Acute (3) COVID-19 Status: Acute (4) Hypoxia Status: Acute Comment Review of Relevant I have reviewed the following items kasey (where applicable) has been applied. Medications: Current Medications Medications (Trade) Dose Ordered Sig/Rosa Route PRN Reason Start Time Stop Time Status Last Admin Dose Admin Insulin Glargine (Lantus Syringe) 10 unit BID SQ 08/25/20 09:00 08/26/20 07:29 Sterile Water (WATER for RESP) 1,000 ml CONT PRN INH VIA VAPOTHERM DEVICE 08/25/20 10:45 08/25/20 20:10 Lactobacillus Rhamnosus (Culturelle) 1 cap BID PO 08/25/20 21:00 08/26/20 07:28 Throat Lozenges (Cepacol Sore Throat Lozenge) 1 katia PRN Q2HRS PRN PO SORE THROAT 08/25/20 16:15 08/26/20 02:35 Justifications for Admission Other Justification COVID 19 LALIT BAIG MD Aug 26, 2020 08:14
[2020-08-26] MEDS: ALBUTEROL SULFATE 8GM INHALER. INH PRN ×3 (08:58→18:03)
[2020-08-26 09:06] LABS: CALCIUM 8.5 mg/dL (8.5-10.1); CREATININE 0.9 mg/dL (0.7-1.3); GFR 89.3; POTASSIUM 4.2 mmol/L (3.5-5.1)
[2020-08-26 09:10] LABS: ALBUMIN 2.4 g/dL (3.4-5.0); DIRECT BILIRUBIN 0.1 mg/dL (0.0-0.2); TOTAL BILIRUBIN 0.3 mg/dL (0.2-1.0); TOTAL PROTEIN 6.8 g/dL (6.4-8.2)
[2020-08-26] MEDS: INSULIN LISPRO 300 UNITS/3 ML VIAL. SQ SCH ×3 (09:10→18:04)
[2020-08-26] MEDS ORDERED: REMDESIVIR LOAD in IV NORMAL SALINE 250ML TV IV ONE (10:00)
--- NOTE | 2020-08-26 10:44 | PDOC ---
PULMONARY PROGRESS NOTES DATE: 08/26/20 TIME: 10:40 Subjective resting comfortably on vapotherm no overnight concerns no increased SOA Vitals Vital Signs Date Time Temp Pulse Resp B/P (MAP) Pulse Ox O2 Delivery O2 Flow Rate FiO2 08/26/20 10:20 96 32 135/77 (96) 92 Vapotherm 08/26/20 07:57 30.0 08/26/20 07:00 99.5 99.5 ROS: No Nausea, No Chest Pain, No Abdominal Pain, No Increase Cough General: Alert, Oriented X4 Lungs: Crackles Cardiovascular: S1, S2 Abdomen: Soft Neuro Exam: Alert, Oriented Extremities: No Edema Skin: Warm, Dry Labs Laboratory Tests Test 08/24/20 11:00 08/24/20 16:37 08/24/20 19:43 08/25/20 07:31 Influenza Type A Antigen Negative (NEGATIVE) Influenza Type B Antigen Negative (NEGATIVE) Glucose (Fingerstick) 296 mg/dL (70-99) 274 mg/dL (70-99) 266 mg/dL (70-99) Test 08/25/20 07:49 08/25/20 11:17 08/25/20 12:22 08/25/20 17:26 White Blood Count 14.8 x10^3/uL (4.0-11.0) Red Blood Count 4.74 x10^6/uL (4.30-5.70) Hemoglobin 13.7 g/dL (13.0-17.5) Hematocrit 40.4 % (39.0-53.0) Mean Corpuscular Volume 85 fL (79-100) Mean Corpuscular Hemoglobin 29 pg (25-35) Mean Corpuscular Hemoglobin Concent 34 g/dL (31-37) Red Cell Distribution Width 13.5 % (11.5-14.5) Platelet Count 335 x10^3/uL (140-400) Neutrophils (%) (Auto) 87 % (31-73) Lymphocytes (%) (Auto) 7 % (24-48) Monocytes (%) (Auto) 6 % (0-9) Eosinophils (%) (Auto) 0 % (0-3) Basophils (%) (Auto) 0 % (0-3) Neutrophils # (Auto) 13.0 x10^3/uL (1.8-7.7) Lymphocytes # (Auto) 1.0 x10^3/uL (1.0-4.8) Monocytes # (Auto) 0.8 x10^3/uL (0.0-1.1) Eosinophils # (Auto) 0.0 x10^3/uL (0.0-0.7) Basophils # (Auto) 0.0 x10^3/uL (0.0-0.2) Sodium Level 142 mmol/L (136-145) Potassium Level 4.4 mmol/L (3.5-5.1) Chloride Level 107 mmol/L (98-107) Carbon Dioxide Level 23 mmol/L (21-32) Anion Gap 12 (6-14) Blood Urea Nitrogen 21 mg/dL (8-26) Creatinine 1.0 mg/dL (0.7-1.3) Estimated GFR (Cockcroft-Gault) 79.1 Glucose Level 293 mg/dL (70-99) Calcium Level 9.1 mg/dL (8.5-10.1) Phosphorus Level 2.9 mg/dL (2.6-4.7) Magnesium Level 2.3 mg/dL (1.8-2.4) Ferritin 816 ng/mL (26-388) Lactate Dehydrogenase 401 U/L (85-227) Procalcitonin 0.11 ng/mL (0.00-0.10) O2 Saturation 93 % (92-99) Arterial Blood pH 7.43 (7.35-7.45) Arterial Blood pCO2 at Patient Temp 31 mmHg (35-46) Arterial Blood pO2 at Patient Temp 63 mmHg (75-108) Arterial Blood HCO3 20 mmol/L (21-28) Arterial Blood Base Excess -3 mmol/L (-3-3) FiO2 100 Glucose (Fingerstick) 271 mg/dL (70-99) 231 mg/dL (70-99) Test 08/25/20 21:16 08/26/20 07:20 08/26/20 09:01 Glucose (Fingerstick) 291 mg/dL (70-99) 253 mg/dL (70-99) White Blood Count 17.4 x10^3/uL (4.0-11.0) Red Blood Count 4.84 x10^6/uL (4.30-5.70) Hemoglobin 13.6 g/dL (13.0-17.5) Hematocrit 41.5 % (39.0-53.0) Mean Corpuscular Volume 86 fL (79-100) Mean Corpuscular Hemoglobin 28 pg (25-35) Mean Corpuscular Hemoglobin Concent 33 g/dL (31-37) Red Cell Distribution Width 13.3 % (11.5-14.5) Platelet Count 419 x10^3/uL (140-400) Neutrophils (%) (Auto) 87 % (31-73) Lymphocytes (%) (Auto) 7 % (24-48) Monocytes (%) (Auto) 6 % (0-9) Eosinophils (%) (Auto) 0 % (0-3) Basophils (%) (Auto) 0 % (0-3) Neutrophils # (Auto) 15.1 x10^3/uL (1.8-7.7) Lymphocytes # (Auto) 1.2 x10^3/uL (1.0-4.8) Monocytes # (Auto) 1.1 x10^3/uL (0.0-1.1) Eosinophils # (Auto) 0.0 x10^3/uL (0.0-0.7) Basophils # (Auto) 0.0 x10^3/uL (0.0-0.2) Sodium Level 142 mmol/L (136-145) Potassium Level 4.2 mmol/L (3.5-5.1) Chloride Level 107 mmol/L (98-107) Carbon Dioxide Level 23 mmol/L (21-32) Anion Gap 12 (6-14) Blood Urea Nitrogen 21 mg/dL (8-26) Creatinine 0.9 mg/dL (0.7-1.3) Estimated GFR (Cockcroft-Gault) 89.3 Glucose Level 256 mg/dL (70-99) Calcium Level 8.5 mg/dL (8.5-10.1) Total Bilirubin 0.3 mg/dL (0.2-1.0) Direct Bilirubin 0.1 mg/dL (0.0-0.2) Aspartate Amino Transf (AST/SGOT) 23 U/L (15-37) Alanine Aminotransferase (ALT/SGPT) 43 U/L (16-63) Alkaline Phosphatase 66 U/L (46-116) Total Protein 6.8 g/dL (6.4-8.2) Albumin 2.4 g/dL (3.4-5.0) Laboratory Tests Test 08/25/20 11:17 08/25/20 12:22 08/25/20 17:26 08/25/20 21:16 O2 Saturation 93 % (92-99) Arterial Blood pH 7.43 (7.35-7.45) Arterial Blood pCO2 at Patient Temp 31 mmHg (35-46) Arterial Blood pO2 at Patient Temp 63 mmHg (75-108) Arterial Blood HCO3 20 mmol/L (21-28) Arterial Blood Base Excess -3 mmol/L (-3-3) FiO2 100 Glucose (Fingerstick) 271 mg/dL (70-99) 231 mg/dL (70-99) 291 mg/dL (70-99) Test 08/26/20 07:20 08/26/20 09:01 White Blood Count 17.4 x10^3/uL (4.0-11.0) Red Blood Count 4.84 x10^6/uL (4.30-5.70) Hemoglobin 13.6 g/dL (13.0-17.5) Hematocrit 41.5 % (39.0-53.0) Mean Corpuscular Volume 86 fL (79-100) Mean Corpuscular Hemoglobin 28 pg (25-35) Mean Corpuscular Hemoglobin Concent 33 g/dL (31-37) Red Cell Distribution Width 13.3 % (11.5-14.5) Platelet Count 419 x10^3/uL (140-400) Neutrophils (%) (Auto) 87 % (31-73) Lymphocytes (%) (Auto) 7 % (24-48) Monocytes (%) (Auto) 6 % (0-9) Eosinophils (%) (Auto) 0 % (0-3) Basophils (%) (Auto) 0 % (0-3) Neutrophils # (Auto) 15.1 x10^3/uL (1.8-7.7) Lymphocytes # (Auto) 1.2 x10^3/uL (1.0-4.8) Monocytes # (Auto) 1.1 x10^3/uL (0.0-1.1) Eosinophils # (Auto) 0.0 x10^3/uL (0.0-0.7) Basophils # (Auto) 0.0 x10^3/uL (0.0-0.2) Sodium Level 142 mmol/L (136-145) Potassium Level 4.2 mmol/L (3.5-5.1) Chloride Level 107 mmol/L (98-107) Carbon Dioxide Level 23 mmol/L (21-32) Anion Gap 12 (6-14) Blood Urea Nitrogen 21 mg/dL (8-26) Creatinine 0.9 mg/dL (0.7-1.3) Estimated GFR (Cockcroft-Gault) 89.3 Glucose Level 256 mg/dL (70-99) Calcium Level 8.5 mg/dL (8.5-10.1) Total Bilirubin 0.3 mg/dL (0.2-1.0) Direct Bilirubin 0.1 mg/dL (0.0-0.2) Aspartate Amino Transf (AST/SGOT) 23 U/L (15-37) Alanine Aminotransferase (ALT/SGPT) 43 U/L (16-63) Alkaline Phosphatase 66 U/L (46-116) Total Protein 6.8 g/dL (6.4-8.2) Albumin 2.4 g/dL (3.4-5.0) Glucose (Fingerstick) 253 mg/dL (70-99) Comments CT chest MPRESSION: Multifocal opacities throughout the bilateral lungs. Differential considerations would include bilateral infection including from viral etiology. A component of edema is not excluded given the groundglass component. Liver is low density which can be seen with fatty infiltration. Nondiagnostic evaluation for pulmonary embolus secondary to almost no contrast within the pulmonary arteries and motion. Prominent lymph nodes in the mediastinum and hilum could be reactive to the pulmonic process Impression . IMPRESSION: 1. Acute hypoxemic respiratory failure secondary to COVID-19 viral pneumonia. 2. COVID-19 viral pneumonia. [address] chest related to COVID-19. 4. Possible gram-positive, gram-negative pneumonia. 5. Hyperglycemia. 6. Morbid obesity. Plan . PLAN: continue supplemental oxygen with vapotherm, monitor for respiratory distress and need for intubation Follow CXR/ABG PRN Continue ABX with rocephin and azithromycin Continue steroids will need full 10 day course Remdesivir started per PCP finish full course Hyperglycemia per PCP DVT/GI PPX D/W RN and RT ALEJANDRA EDDY MD Aug 26, 2020 10:44
--- NOTE | 2020-08-26 10:51 | RAD ---
EXAM: XR CHEST 1V INDICATION: Reason: Worsening hypoxia / Spl. Instructions: / History: . TECHNIQUE: Single view COMPARISON: Chest x-ray 08/23/2020 FINDINGS: The heart size is normal. The great vessels appear unremarkable. There is no hilar or mediastinal mass. The lungs again show patchy bilateral pulmonary infiltrates, overall similar to prior with low lung v olumes.. There is no pleural effusion or pneumothorax. There are no significant osseous abnormalities. IMPRESSION: Persistent bilateral pulmonary infiltrates, compatible with pneumonia. Electronically signed by: Kendra Geronimo MD (08/26/2020 10:49 AM) [id number]
[2020-08-26] MEDS: STERILE WATER for RESP 1,000 ML BAG. INH PRN (11:12)
[2020-08-26] MEDS ORDERED: BENZONATATE 100 MG CAPSULE. PO ONE (13:45)
[2020-08-26] MEDS ORDERED: FUROSEMIDE 20 MG/2 ML VIAL. IVP ONE (13:45)
[2020-08-26] MEDS: cefTRIAXone IV Push 1 GM VIAL. IVP SCH (21:26)
[2020-08-26] MEDS: AZITHROMYCIN 500 MG in IV NORMAL SALINE 250ML 250 ML IV SCH (21:26)
[2020-08-27] VITALS (23 sets, daily range): BP systolic 119–140; BP diastolic 49–78
[2020-08-27] MEDS: fentaNYL PF VIAL 100 MCG/2 ML VIAL IVP PRN ×4 (01:14→20:24)
[2020-08-27] MEDS: methylPREDNISolone SOD SUCC PF 40 MG/ML VIAL. IV SCH ×3 (05:34→21:52)
--- NOTE | 2020-08-27 08:14 | PDOC ---
[facility] PROGRESS NOTE Date of Service DOS: DATE: 08/27/20 TIME: 08:14 Chief Complaint Chief Complaint COVID-19 infection Acute hypoxemic respiratory failure secondary to the above Hypokalemia Hyperglycemia Morbid obesity with a BMI of 45 Moderate malnutrition Moderate dehydration Plan Vitamin C&D Zinc Solu-Medrol 40 mg every 8 hours We will provide broad-spectrum antibiotics empirically for superimposed community-acquired pneumonia with Rocephin and Zithromax Supportive measures and oxygen will transfer to ICU for Vapotherm consult pulmonology Further recommendations based on the clinical course DVT prophylaxis with Lovenox History of Present Illness History of Present Illness Mr Shaffer is a 50-year-old gentleman who was in his usual state of health until approximately August 13 even a couple of days prior to that he felt generalized malaise headache upper respiratory tract infection symptoms finally got tested for COVID-19 and his result came back positive on August 13. The patient was given supportive measures at home and he tried to self medicate with Tylenol vitamins and staying well-hydrated nevertheless the day prior to his admission he started complaining of worsening cough he had not required oxygen at home but after a coughing spell which brought upon purulent looking mucus his oxygen levels that he had been checking at home and had been staying in the 95% range dropped into the 70s reason why he decided to come to our emergency department for further evaluation and treatment. Given the acuity of his presentation we are asked to admit since the patient is requiring 15 L of oxygen at this point. The patient denies any slurred speech no dysphagia odynophagia no focal neurological deficits no chest pain palpitations, worsening shortness of breath has been reported, he denies nausea but due to the coughing spell he vomited on one occasion. No hematemesis no hematochezia no black tarry stools have been reported no urinary symptoms no other complaints voiced. All concerns addressed to the best my abilities plan of care explained in detail reassurance provided 2/3: Patient in acute distress seems to be worse compared to yesterday and he re fers feeling that his airway is "closing". Patient was try to be put on BiPAP overnight but he felt claustrophobic and worsen his condition. Transferred to the intensive care unit for Vapotherm 2/4: Afebrile. On 30l/min vapotherm currently. Coughing significantly, productive. No chest pain. Has good appetite. Feels better laying on his right side. Initiated on remdesivir. Afebrile. 30 L minute Vapotherm. Slept better last night than previously. Coughing up white sputum. Good appetite. Plan: Albuterol prn for bronchospasm Vitals/I&O Vitals/I&O: Vital Signs Date Time Temp Pulse Resp B/P (MAP) Pulse Ox O2 Delivery O2 Flow Rate FiO2 08/27/20 07:37 95 Nasal Cannula 30.0 08/27/20 07:00 85 25 121/74 (90) 08/27/20 04:00 98.9 98.9 I & O 08/26/20 08/26/20 08/27/20 15:00 23:00 07:00 Intake Total 1280 ml 750 ml 400 ml Output Total 500 ml 1900 ml 900 ml Balance 780 ml -1150 ml -500 ml Physical Exam Physical Exam: GEN: No apparent distress. Alert and oriented HEENT: Normal cephalic, atraumatic, external auditory canals are patent. Mucous membranes are moist EYES: Extraocular muscles are intact, pupil are equally round and reactive to light and accommodation. MUSCULOSKELETAL: Well developed , well nourished, good range of motion ENDOCRINE: No thyromegaly was palpated LYMPHATICS: No cervical chain or axillary nodes were noted HEMATOPOIETIC: No bruising NECK: Supple, no JVD, no thyromegaly was noted LUNGS: Coarse to auscultation bilaterally with bilateral rhonchi and crackles bilateral lung bases accessory muscle use and increasing work of breathing has been noted HEART: RRR, S!, S2 present. Peripheral pulses intact, no obvious murmurs noted ABDOMEN: Soft, nontender. Positive bowel sounds, no organomegaly, normal bowel sounds EXTREMITIES: Without clubbing, cyanosis, or edema. Pedal pulses intact. Negative Homans sign NEUROLOGIC: Normal speech and tone. A&O x 3, moves all extremities, no obvious focal deficits PSYCHIATRIC: Normal affect, normal mood. Stable SKIN: No ulcerations or rashes, good skin turgor, no jaundice VASCULAR: Good capillary refill, neurovascular bundle appears to be intact Lungs: Crackles Labs Labs: Laboratory Tests Test 08/26/20 09:01 08/26/20 12:29 08/26/20 17:55 08/26/20 20:28 Glucose (Fingerstick) 253 mg/dL (70-99) 258 mg/dL (70-99) 253 mg/dL (70-99) 306 mg/dL (70-99) Assessment and Plan Assessmemt and Plan Problems Medical Problems: (1) Bilateral pneumonia Status: Acute (2) Community acquired pneumonia Status: Acute (3) COVID-19 Status: Acute (4) Hypoxia Status: Acute Comment Review of Relevant I have reviewed the following items kasey (where applicable) has been applied. Medications: Current Medications Medications (Trade) Dose Ordered Sig/Rosa Route PRN Reason Start Time Stop Time Status Last Admin Dose Admin Albuterol Sulfate (Ventolin Hfa) 1 puff PRN Q4HRS PRN INH SHORTNESS OF BREATH 08/26/20 08:15 08/26/20 18:03 Insulin Glargine (Lantus Syringe) 13 unit BID SQ 08/26/20 09:00 08/26/20 20:34 Remdesivir 200 mg/ Sodium Chloride 210 ml @ 210 mls/hr 1X ONCE IV 08/26/20 10:00 08/26/20 10:59 DC 08/26/20 09:11 Benzonatate (Tessalon Perle) 100 mg 1X ONCE PO 08/26/20 13:45 08/26/20 13:46 DC 08/26/20 15:20 Furosemide (Lasix) 20 mg 1X ONCE IVP 08/26/20 13:45 08/26/20 13:46 DC 08/26/20 15:19 Justifications for Admission Other Justification COVID 19 LALIT BAIG MD Aug 27, 2020 08:14
[2020-08-27] MEDS ORDERED: DEXTROSE 50% 25 GM / 50ML DISP.SYRIN. IV PRN (08:15)
[2020-08-27] MEDS: REMDESIVIR 100mg in NORMAL SALINE 250ML X 4 DAYS IV SCH (08:18)
[2020-08-27] MEDS: guaiFENesin ORAL 200 MG/10 ML LIQUID. PO PRN ×4 (08:19→21:51)
[2020-08-27] MEDS: LACTOBACILLUS RHAMNOSUS GG 1 CAPSULE. PO SCH ×2 (08:19→20:15)
[2020-08-27] MEDS: ASCORBIC ACID 500 MG TABLET PO SCH ×3 (08:19→20:15)
[2020-08-27] MEDS: ZINC SULFATE 220 MG CAPSULE. PO SCH (08:19)
[2020-08-27] MEDS: CHOLECALCIFEROL (VITAMIN D3) 1,000 UNIT TABLET PO SCH (08:19)
[2020-08-27] MEDS: SENNOSIDES/DOCUSATE 8.6/50MG TABLET. PO SCH ×2 (08:21→20:24)
[2020-08-27] MEDS: ENOXAPARIN 40 MG/0.4 ML SYRINGE. SQ SCH ×2 (08:22→20:16)
[2020-08-27] MEDS: INSULIN LISPRO 300 UNITS/3 ML VIAL. SQ SCH ×3 (08:35→17:15)
[2020-08-27] MEDS: INSULIN GLARGINE SYRINGE. SQ SCH ×2 (09:00→20:25)
--- NOTE | 2020-08-27 10:15 | PDOC ---
PULMONARY PROGRESS NOTES DATE: 08/27/20 TIME: 10:13 Subjective resting comfortably on vapotherm 100% and 30 L no overnight concerns no increased SOA or cough Vitals Vital Signs Date Time Temp Pulse Resp B/P (MAP) Pulse Ox O2 Delivery O2 Flow Rate FiO2 08/27/20 10:02 83 28 132/69 (90) 93 Vapotherm 30.0 08/27/20 08:00 98.1 98.1 ROS: No Nausea, No Chest Pain, No Abdominal Pain, No Increase Cough General: Alert, Oriented X4 Lungs: Crackles Cardiovascular: S1, S2 Abdomen: Soft Neuro Exam: Alert, Oriented Extremities: No Edema Skin: Warm, Dry Labs Laboratory Tests Test 08/25/20 11:17 08/25/20 12:22 08/25/20 17:26 08/25/20 21:16 O2 Saturation 93 % (92-99) Arterial Blood pH 7.43 (7.35-7.45) Arterial Blood pCO2 at Patient Temp 31 mmHg (35-46) Arterial Blood pO2 at Patient Temp 63 mmHg (75-108) Arterial Blood HCO3 20 mmol/L (21-28) Arterial Blood Base Excess -3 mmol/L (-3-3) FiO2 100 Glucose (Fingerstick) 271 mg/dL (70-99) 231 mg/dL (70-99) 291 mg/dL (70-99) Test 08/26/20 07:20 08/26/20 09:01 08/26/20 12:29 08/26/20 17:55 White Blood Count 17.4 x10^3/uL (4.0-11.0) Red Blood Count 4.84 x10^6/uL (4.30-5.70) Hemoglobin 13.6 g/dL (13.0-17.5) Hematocrit 41.5 % (39.0-53.0) Mean Corpuscular Volume 86 fL (79-100) Mean Corpuscular Hemoglobin 28 pg (25-35) Mean Corpuscular Hemoglobin Concent 33 g/dL (31-37) Red Cell Distribution Width 13.3 % (11.5-14.5) Platelet Count 419 x10^3/uL (140-400) Neutrophils (%) (Auto) 87 % (31-73) Lymphocytes (%) (Auto) 7 % (24-48) Monocytes (%) (Auto) 6 % (0-9) Eosinophils (%) (Auto) 0 % (0-3) Basophils (%) (Auto) 0 % (0-3) Neutrophils # (Auto) 15.1 x10^3/uL (1.8-7.7) Lymphocytes # (Auto) 1.2 x10^3/uL (1.0-4.8) Monocytes # (Auto) 1.1 x10^3/uL (0.0-1.1) Eosinophils # (Auto) 0.0 x10^3/uL (0.0-0.7) Basophils # (Auto) 0.0 x10^3/uL (0.0-0.2) Sodium Level 142 mmol/L (136-145) Potassium Level 4.2 mmol/L (3.5-5.1) Chloride Level 107 mmol/L (98-107) Carbon Dioxide Level 23 mmol/L (21-32) Anion Gap 12 (6-14) Blood Urea Nitrogen 21 mg/dL (8-26) Creatinine 0.9 mg/dL (0.7-1.3) Estimated GFR (Cockcroft-Gault) 89.3 Glucose Level 256 mg/dL (70-99) Calcium Level 8.5 mg/dL (8.5-10.1) Total Bilirubin 0.3 mg/dL (0.2-1.0) Direct Bilirubin 0.1 mg/dL (0.0-0.2) Aspartate Amino Transf (AST/SGOT) 23 U/L (15-37) Alanine Aminotransferase (ALT/SGPT) 43 U/L (16-63) Alkaline Phosphatase 66 U/L (46-116) Total Protein 6.8 g/dL (6.4-8.2) Albumin 2.4 g/dL (3.4-5.0) Glucose (Fingerstick) 253 mg/dL (70-99) 258 mg/dL (70-99) 253 mg/dL (70-99) Test 08/26/20 20:28 08/27/20 08:26 Glucose (Fingerstick) 306 mg/dL (70-99) 239 mg/dL (70-99) Laboratory Tests Test 08/26/20 12:29 08/26/20 17:55 08/26/20 20:28 08/27/20 08:26 Glucose (Fingerstick) 258 mg/dL (70-99) 253 mg/dL (70-99) 306 mg/dL (70-99) 239 mg/dL (70-99) Comments CT chest MPRESSION: Multifocal opacities throughout the bilateral lungs. Differential considerations would include bilateral infection including from viral etiology. A component of edema is not excluded given the groundglass component. Liver is low density which can be seen with fatty infiltration. Nondiagnostic evaluation for pulmonary embolus secondary to almost no contrast within the pulmonary arteries and motion. Prominent lymph nodes in the mediastinum and hilum could be reactive to the pulmonic process Impression . IMPRESSION: 1. Acute hypoxemic respiratory failure secondary to COVID-19 viral pneumonia. 2. COVID-19 viral pneumonia[address] CT chest related to COVID-19. 4. Possible gram-positive, gram-negative pneumonia. 5. Hyperglycemia. 6. Morbid obesity. Plan . PLAN: continue supplemental oxygen with vapotherm, monitor for respiratory distress and need for intubation Follow CXR/ABG PRN COVID + on 08/13 Continue ABX with rocephin and azithromycin Continue steroids will need full 10 day course Remdesivir started per PCP finish full course Hyperglycemia per PCP DVT/GI PPX D/W RN and RT PHYLICIA FLANAGAN MD Aug 27, 2020 10:15
[2020-08-27] MEDS: cefTRIAXone IV Push 1 GM VIAL. IVP SCH (21:52)
[2020-08-28] VITALS (24 sets, daily range): BP systolic 112–168; BP diastolic 59–84
[2020-08-28] MEDS: guaiFENesin ORAL 200 MG/10 ML LIQUID. PO PRN (01:48)
[2020-08-28] MEDS: fentaNYL PF VIAL 100 MCG/2 ML VIAL IVP PRN ×4 (01:48→20:44)
[2020-08-28 05:00] LABS: BASO % 0 % (0-3); EOS % 0 % (0-3); HEMOGLOBIN 13.8 g/dL (13.0-17.5); LYMPH # 0.9 x10^3/uL (1.0-4.8); LYMPH % 7 % (24-48); MEAN CORPUSCULAR HEMOGLOBIN 29 pg (25-35); MEAN CORPUSCULAR HGB CONC 34 g/dL (31-37); MEAN CORPUSCULAR VOLUME 84 fL (79-100); MONO # 0.5 x10^3/uL (0.0-1.1); MONO % 4 % (0-9); NEUT # 11.1 x10^3/uL (1.8-7.7); NEUT % 89 % (31-73); PLATELET COUNT 378 x10^3/uL (140-400); RED BLOOD COUNT 4.86 x10^6/uL (4.30-5.70); RED CELL DISTRIBUTION WIDTH 13.2 % (11.5-14.5); WHITE BLOOD COUNT 12.6 x10^3/uL (4.0-11.0)
[2020-08-28 05:18] LABS: ALBUMIN 2.4 g/dL (3.4-5.0); ALBUMIN/GLOBULIN RATIO 0.6 (1.0-1.7); CALCIUM 8.6 mg/dL (8.5-10.1); CREATININE 0.9 mg/dL (0.7-1.3); GFR 89.3; POTASSIUM 3.9 mmol/L (3.5-5.1); TOTAL BILIRUBIN 0.4 mg/dL (0.2-1.0); TOTAL PROTEIN 6.3 g/dL (6.4-8.2)
[2020-08-28] MEDS: STERILE WATER for RESP 1,000 ML BAG. INH PRN ×2 (05:53→16:49)
[2020-08-28] MEDS: methylPREDNISolone SOD SUCC PF 40 MG/ML VIAL. IV SCH ×3 (05:54→22:00)
[2020-08-28] MEDS: REMDESIVIR 100mg in NORMAL SALINE 250ML X 4 DAYS IV SCH (08:37)
[2020-08-28] MEDS: LACTOBACILLUS RHAMNOSUS GG 1 CAPSULE. PO SCH ×2 (08:38→20:22)
[2020-08-28] MEDS: CHOLECALCIFEROL (VITAMIN D3) 1,000 UNIT TABLET PO SCH (08:38)
[2020-08-28] MEDS: ZINC SULFATE 220 MG CAPSULE. PO SCH (08:38)
[2020-08-28] MEDS: ASCORBIC ACID 500 MG TABLET PO SCH ×3 (08:39→20:22)
[2020-08-28] MEDS: ENOXAPARIN 40 MG/0.4 ML SYRINGE. SQ SCH ×2 (08:40→20:23)
[2020-08-28] MEDS: INSULIN GLARGINE SYRINGE. SQ SCH ×2 (08:43→20:35)
[2020-08-28] MEDS: SENNOSIDES/DOCUSATE 8.6/50MG TABLET. PO SCH ×2 (09:00→19:48)
[2020-08-28] MEDS: INSULIN LISPRO 300 UNITS/3 ML VIAL. SQ SCH ×3 (09:10→17:00)
--- NOTE | 2020-08-28 10:14 | PDOC ---
[facility] PROGRESS NOTE Date of Service DOS: DATE: 08/28/20 TIME: 10:10 Chief Complaint Chief Complaint A/P: COVID-19 infection - remdesivir initiated 08/26/20. Solu-Medrol 40 mg every 8 hours, zinc, vitamin c. Pulm following with vapotherm O2 Acute hypoxemic respiratory failure secondary to the above Community acquired bacterial pneumonia - with covid 19 likely gram negative, broad-spectrum antibiotics empirically for superimposed community-acquired pneumonia with Rocephin and Zithromax Hypokalemia DM2 with Hyperglycemia - high sliding scale Morbid obesity with a BMI of 45 Moderate malnutrition Moderate dehydration FEN - ADA diet DVT prophylaxis with Lovenox FULL CODE Dispo - ICU critically ill History of Present Illness History of Present Illness Mr Shaffer is a 50-year-old gentleman who was in his usual state of health until approximately August 13 even a couple of days prior to that he felt generalized malaise headache upper respiratory tract infection symptoms finally got tested for COVID-19 and his result came back positive on August 13. The patient was given supportive measures at home and he tried to self medicate with Tylenol vitamins and staying well-hydrated nevertheless the day prior to his admission he started complaining of worsening cough he had not required oxygen at home but after a coughing spell which brought upon purulent looking mucus his oxygen levels that he had been checking at home and had been staying in the 95% range dropped into the 70s reason why he decided to come to our emergency department for further evaluation and treatment. Given the acuity of his presentation we are asked to admit since the patient is requiring 15 L of oxygen at this point. The patient denies any slurred speech no dysphagia odynophagia no focal neurological deficits no chest pain palpitations, worsening shortness of breath has been reported, he denies nausea but due to the coughing spell he vomited on one occasion. No hematemesis no hematochezia no black tarry stools have been reported no urinary symptoms no other complaints voiced. All concerns addressed to the best my abilities plan of care explained in detail reassurance provided 2/3: Patient in acute distress seems to be worse compared to yesterday and he refers feeling that his airway is "closing". Patient was try to be put on BiPAP overnight but he felt claustrophobic and worsen his condition. Transferred to the intensive care unit for Vapotherm 08/26: Afebrile. On 30l/min vapotherm currently. Coughing significantly, productive. No chest pain. Has good appetite. Feels better laying on his right side. Initiated on remdesivir. 08/27: Afebrile. 30 L minute Vapotherm. Slept better last night than previously. Coughing up white sputum. Good appetite. Remdesivir day 2 Afebrile. Still requiring 30 L minute Vapotherm 100% with O2 saturations 94%. Slept well again. Still with persistent cough though it is no longer as productive. Bronchospasm improving slightly with albuterol. Plan: Add tessalon Cont ICU care CC time 38 min Vitals/I&O Vitals/I&O: Vital Signs Date Time Temp Pulse Resp B/P (MAP) Pulse Ox O2 Delivery O2 Flow Rate FiO2 08/28/20 08:38 96 Nasal Cannula 30.0 08/28/20 05:55 68 24 121/73 (89) 08/28/20 04:00 98.0 98.0 I & O 08/27/20 08/27/20 08/28/20 14:59 22:59 06:59 Intake Total 1320 ml 950 ml 100 ml Output Total 650 ml 1300 ml 1300 ml Balance 670 ml -350 ml -1200 ml Physical Exam Physical Exam: GEN: No apparent distress. Alert and oriented HEENT: Normal cephalic, atraumatic, external auditory canals are patent. Mucous membranes are moist EYES: Extraocular muscles are intact, pupil are equally round and reactive to light and accommodation. MUSCULOSKELETAL: Well developed , well nourished, good range of motion ENDOCRINE: No thyromegaly was palpated LYMPHATICS: No cervical chain or axillary nodes were noted HEMATOPOIETIC: No bruising NECK: Supple, no JVD, no thyromegaly was noted LUNGS: Coarse to auscultation bilaterally with bilateral rhonchi and crackles bilateral lung bases accessory muscle use and increasing work of breathing has been noted HEART: RRR, S!, S2 present. Peripheral pulses intact, no obvious murmurs noted ABDOMEN: Soft, nontender. Positive bowel sounds, no organomegaly, normal bowel sounds EXTREMITIES: Without clubbing, cyanosis, or edema. Pedal pulses intact. Negative Homans sign NEUROLOGIC: Normal speech and tone. A&O x 3, moves all extremities, no obvious focal deficits PSYCHIATRIC: Normal affect, normal mood. Stable SKIN: No ulcerations or rashes, good skin turgor, no jaundice VASCULAR: Good capillary refill, neurovascular bundle appears to be intact Lungs: Crackles Labs Labs: Laboratory Tests Test 08/27/20 12:21 08/27/20 17:11 08/27/20 20:20 08/28/20 04:45 Glucose (Fingerstick) 248 mg/dL (70-99) 277 mg/dL (70-99) 246 mg/dL (70-99) White Blood Count 12.6 x10^3/uL (4.0-11.0) Red Blood Count 4.86 x10^6/uL (4.30-5.70) Hemoglobin 13.8 g/dL (13.0-17.5) Hematocrit 41.0 % (39.0-53.0) Mean Corpuscular Volume 84 fL (79-100) Mean Corpuscular Hemoglobin 29 pg (25-35) Mean Corpuscular Hemoglobin Concent 34 g/dL (31-37) Red Cell Distribution Width 13.2 % (11.5-14.5) Platelet Count 378 x10^3/uL (140-400) Neutrophils (%) (Auto) 89 % (31-73) Lymphocytes (%) (Auto) 7 % (24-48) Monocytes (%) (Auto) 4 % (0-9) Eosinophils (%) (Auto) 0 % (0-3) Basophils (%) (Auto) 0 % (0-3) Neutrophils # (Auto) 11.1 x10^3/uL (1.8-7.7) Lymphocytes # (Auto) 0.9 x10^3/uL (1.0-4.8) Monocytes # (Auto) 0.5 x10^3/uL (0.0-1.1) Eosinophils # (Auto) 0.0 x10^3/uL (0.0-0.7) Basophils # (Auto) 0.0 x10^3/uL (0.0-0.2) Sodium Level 136 mmol/L (136-145) Potassium Level 3.9 mmol/L (3.5-5.1) Chloride Level 100 mmol/L (98-107) Carbon Dioxide Level 25 mmol/L (21-32) Anion Gap 11 (6-14) Blood Urea Nitrogen 23 mg/dL (8-26) Creatinine 0.9 mg/dL (0.7-1.3) Estimated GFR (Cockcroft-Gault) 89.3 BUN/Creatinine Ratio 26 (6-20) Glucose Level 318 mg/dL (70-99) Calcium Level 8.6 mg/dL (8.5-10.1) Total Bilirubin 0.4 mg/dL (0.2-1.0) Aspartate Amino Transf (AST/SGOT) 21 U/L (15-37) Alanine Aminotransferase (ALT/SGPT) 44 U/L (16-63) Alkaline Phosphatase 66 U/L (46-116) Total Protein 6.3 g/dL (6.4-8.2) Albumin 2.4 g/dL (3.4-5.0) Albumin/Globulin Ratio 0.6 (1.0-1.7) Test 08/28/20 08:53 Glucose (Fingerstick) 270 mg/dL (70-99) Assessment and Plan Assessmemt and Plan Problems Medical Problems: (1) Bilateral pneumonia Status: Acute (2) Community acquired pneumonia Status: Acute (3) COVID-19 Status: Acute (4) Hypoxia Status: Acute Comment Review of Relevant I have reviewed the following items kasey (where applicable) has been applied. Justifications for Admission Other Justification COVID 19 LALIT BAIG MD Aug 28, 2020 10:14
[2020-08-28] MEDS ORDERED: BENZONATATE 100 MG CAPSULE. PO ONE (10:30)
--- NOTE | 2020-08-28 10:30 | PDOC ---
PULMONARY PROGRESS NOTES DATE: 08/28/20 TIME: 10:28 Subjective resting comfortably on vapotherm 100% and 30 L no overnight concerns no increased SOA or cough Vitals Vital Signs Date Time Temp Pulse Resp B/P (MAP) Pulse Ox O2 Delivery O2 Flow Rate FiO2 08/28/20 08:38 96 Nasal Cannula 30.0 08/28/20 05:55 68 24 121/73 (89) 08/28/20 04:00 98.0 98.0 Comments visual exam done due to COVID-19 no soa, no leg edema, no rash ROS: No Chest Pain, No Increase Cough General: Alert Skin: Dry Labs Laboratory Tests Test 08/26/20 12:29 08/26/20 17:55 08/26/20 20:28 08/27/20 08:26 Glucose (Fingerstick) 258 mg/dL (70-99) 253 mg/dL (70-99) 306 mg/dL (70-99) 239 mg/dL (70-99) Test 08/27/20 12:21 08/27/20 17:11 08/27/20 20:20 08/28/20 04:45 Glucose (Fingerstick) 248 mg/dL (70-99) 277 mg/dL (70-99) 246 mg/dL (70-99) White Blood Count 12.6 x10^3/uL (4.0-11.0) Red Blood Count 4.86 x10^6/uL (4.30-5.70) Hemoglobin 13.8 g/dL (13.0-17.5) Hematocrit 41.0 % (39.0-53.0) Mean Corpuscular Volume 84 fL (79-100) Mean Corpuscular Hemoglobin 29 pg (25-35) Mean Corpuscular Hemoglobin Concent 34 g/dL (31-37) Red Cell Distribution Width 13.2 % (11.5-14.5) Platelet Count 378 x10^3/uL (140-400) Neutrophils (%) (Auto) 89 % (31-73) Lymphocytes (%) (Auto) 7 % (24-48) Monocytes (%) (Auto) 4 % (0-9) Eosinophils (%) (Auto) 0 % (0-3) Basophils (%) (Auto) 0 % (0-3) Neutrophils # (Auto) 11.1 x10^3/uL (1.8-7.7) Lymphocytes # (Auto) 0.9 x10^3/uL (1.0-4.8) Monocytes # (Auto) 0.5 x10^3/uL (0.0-1.1) Eosinophils # (Auto) 0.0 x10^3/uL (0.0-0.7) Basophils # (Auto) 0.0 x10^3/uL (0.0-0.2) Sodium Level 136 mmol/L (136-145) Potassium Level 3.9 mmol/L (3.5-5.1) Chloride Level 100 mmol/L (98-107) Carbon Dioxide Level 25 mmol/L (21-32) Anion Gap 11 (6-14) Blood Urea Nitrogen 23 mg/dL (8-26) Creatinine 0.9 mg/dL (0.7-1.3) Estimated GFR (Cockcroft-Gault) 89.3 BUN/Creatinine Ratio 26 (6-20) Glucose Level 318 mg/dL (70-99) Calcium Level 8.6 mg/dL (8.5-10.1) Total Bilirubin 0.4 mg/dL (0.2-1.0) Aspartate Amino Transf (AST/SGOT) 21 U/L (15-37) Alanine Aminotransferase (ALT/SGPT) 44 U/L (16-63) Alkaline Phosphatase 66 U/L (46-116) Total Protein 6.3 g/dL (6.4-8.2) Albumin 2.4 g/dL (3.4-5.0) Albumin/Globulin Ratio 0.6 (1.0-1.7) Test 08/28/20 08:53 Glucose (Fingerstick) 270 mg/dL (70-99) Laboratory Tests Test 08/27/20 12:21 08/27/20 17:11 08/27/20 20:20 08/28/20 04:45 Glucose (Fingerstick) 248 mg/dL (70-99) 277 mg/dL (70-99) 246 mg/dL (70-99) White Blood Count 12.6 x10^3/uL (4.0-11.0) Red Blood Count 4.86 x10^6/uL (4.30-5.70) Hemoglobin 13.8 g/dL (13.0-17.5) Hematocrit 41.0 % (39.0-53.0) Mean Corpuscular Volume 84 fL (79-100) Mean Corpuscular Hemoglobin 29 pg (25-35) Mean Corpuscular Hemoglobin Concent 34 g/dL (31-37) Red Cell Distribution Width 13.2 % (11.5-14.5) Platelet Count 378 x10^3/uL (140-400) Neutrophils (%) (Auto) 89 % (31-73) Lymphocytes (%) (Auto) 7 % (24-48) Monocytes (%) (Auto) 4 % (0-9) Eosinophils (%) (Auto) 0 % (0-3) Basophils (%) (Auto) 0 % (0-3) Neutrophils # (Auto) 11.1 x10^3/uL (1.8-7.7) Lymphocytes # (Auto) 0.9 x10^3/uL (1.0-4.8) Monocytes # (Auto) 0.5 x10^3/uL (0.0-1.1) Eosinophils # (Auto) 0.0 x10^3/uL (0.0-0.7) Basophils # (Auto) 0.0 x10^3/uL (0.0-0.2) Sodium Level 136 mmol/L (136-145) Potassium Level 3.9 mmol/L (3.5-5.1) Chloride Level 100 mmol/L (98-107) Carbon Dioxide Level 25 mmol/L (21-32) Anion Gap 11 (6-14) Blood Urea Nitrogen 23 mg/dL (8-26) Creatinine 0.9 mg/dL (0.7-1.3) Estimated GFR (Cockcroft-Gault) 89.3 BUN/Creatinine Ratio 26 (6-20) Glucose Level 318 mg/dL (70-99) Calcium Level 8.6 mg/dL (8.5-10.1) Total Bilirubin 0.4 mg/dL (0.2-1.0) Aspartate Amino Transf (AST/SGOT) 21 U/L (15-37) Alanine Aminotransferase (ALT/SGPT) 44 U/L (16-63) Alkaline Phosphatase 66 U/L (46-116) Total Protein 6.3 g/dL (6.4-8.2) Albumin 2.4 g/dL (3.4-5.0) Albumin/Globulin Ratio 0.6 (1.0-1.7) Test 08/28/20 08:53 Glucose (Fingerstick) 270 mg/dL (70-99) Comments CT chest MPRESSION: Multifocal opacities throughout the bilateral lungs. Differential considerations would include bilateral infection including from viral etiology. A component of edema is not excluded given the groundglass component. Liver is low density which can be seen with fatty infiltration. Nondiagnostic evaluation for pulmonary embolus secondary to almost no contrast within the pulmonary arteries and motion. Prominent lymph nodes in the mediastinum and hilum could be reactive to the pulmonic process Impression . IMPRESSION: 1. Acute hypoxemic respiratory failure secondary to COVID-19 viral pneumonia./ ARDS/ ALI 2. COVID-19 viral pneumonia. [address] chest related to COVID-19. 4. Possible gram-positive, gram-negative pneumonia. 5. Hyperglycemia. 6. Morbid obesity. Plan . PLAN: continue supplemental oxygen with vapotherm 100%FIO2, monitor for respiratory distress and need for intubation Follow CXR/ABG PRN COVID + on 08/13 Continue ABX with rocephin and azithromycin Continue steroids will need full 10 day course Remdesivir started per PCP finish full course Hyperglycemia per PCP DVT/GI PPX D/W RN and RT PHYLICIA FLANAGAN MD Aug 28, 2020 10:30
[2020-08-28] MEDS: BENZONATATE 100 MG CAPSULE. PO SCH ×2 (15:19→20:23)
[2020-08-28] MEDS: traMADol 50 MG TABLET PO PRN (15:20)
[2020-08-28] MEDS: cefTRIAXone IV Push 1 GM VIAL. IVP SCH (22:00)
[2020-08-29] VITALS (17 sets, daily range): BP systolic 106–134; BP diastolic 60–78
[2020-08-29] MEDS: guaiFENesin DM 200MG/20MG 10 ML SYRUP PO PRN ×2 (00:15→14:31)
[2020-08-29] MEDS: traMADol 50 MG TABLET PO PRN ×3 (03:41→20:45)
[2020-08-29 04:29] LABS: ALBUMIN 2.4 g/dL (3.4-5.0); ALBUMIN/GLOBULIN RATIO 0.6 (1.0-1.7); CALCIUM 8.3 mg/dL (8.5-10.1); CREATININE 0.9 mg/dL (0.7-1.3); GFR 89.3; POTASSIUM 4.2 mmol/L (3.5-5.1); TOTAL BILIRUBIN 0.4 mg/dL (0.2-1.0); TOTAL PROTEIN 6.2 g/dL (6.4-8.2)
[2020-08-29] MEDS: methylPREDNISolone SOD SUCC PF 40 MG/ML VIAL. IV SCH ×3 (05:49→21:50)
[2020-08-29] MEDS: STERILE WATER for RESP 1,000 ML BAG. INH PRN (08:06)
[2020-08-29] MEDS: ZINC SULFATE 220 MG CAPSULE. PO SCH (08:19)
[2020-08-29] MEDS: ENOXAPARIN 40 MG/0.4 ML SYRINGE. SQ SCH ×2 (08:19→20:45)
[2020-08-29] MEDS: CHOLECALCIFEROL (VITAMIN D3) 1,000 UNIT TABLET PO SCH (08:19)
[2020-08-29] MEDS: LACTOBACILLUS RHAMNOSUS GG 1 CAPSULE. PO SCH ×2 (08:20→20:45)
[2020-08-29] MEDS: BENZONATATE 100 MG CAPSULE. PO SCH ×3 (08:20→20:45)
[2020-08-29] MEDS: ASCORBIC ACID 500 MG TABLET PO SCH ×3 (08:20→20:45)
[2020-08-29] MEDS: BENZOCAINE/MENTHOL LOZENGE. PO PRN ×2 (08:20→13:36)
[2020-08-29] MEDS: INSULIN GLARGINE SYRINGE. SQ SCH ×2 (09:00→21:00)
[2020-08-29] MEDS: SENNOSIDES/DOCUSATE 8.6/50MG TABLET. PO SCH ×2 (09:00→20:47)
--- NOTE | 2020-08-29 09:26 | PDOC ---
[facility] PROGRESS NOTE Date of Service DOS: DATE: 08/29/20 TIME: 09:25 Chief Complaint Chief Complaint A/P: COVID-19 infection - remdesivir initiated 08/26/20. Solu-Medrol 40 mg every 8 hours, zinc, vitamin c. Pulm following with vapotherm O2 Acute hypoxemic respiratory failure secondary to the above Community acquired bacterial pneumonia - with covid 19 likely gram negative, broad-spectrum antibiotics empirically for superimposed community-acquired pneumonia with Rocephin and Zithromax Hypokalemia DM2 with Hyperglycemia - high sliding scale Morbid obesity with a BMI of 45 Moderate malnutrition Moderate dehydration FEN - ADA diet DVT prophylaxis with Lovenox FULL CODE Dispo - ICU critically ill History of Present Illness History of Present Illness Mr Shaffer is a 50-year-old gentleman who was in his usual state of health until approximately August 13 even a couple of days prior to that he felt generalized malaise headache upper respiratory tract infection symptoms finally got tested for COVID-19 and his result came back positive on August 13. The patient was given supportive measures at home and he tried to self medicate with Tylenol vitamins and staying well-hydrated nevertheless the day prior to his admission he started complaining of worsening cough he had not required oxygen at home but after a coughing spell which brought upon purulent looking mucus his oxygen levels that he had been checking at home and had been staying in the 95% range dropped into the 70s reason why he decided to come to our emergency department for further evaluation and treatment. Given the acuity of his presentation we are asked to admit since the patient is requiring 15 L of oxygen at this point. The patient denies any slurred speech no dysphagia odynophagia no focal neurological deficits no chest pain palpitations, worsening shortness of breath has been reported, he denies nausea but due to the coughing spell he vomited on one occasion. No hematemesis no hematochezia no black tarry stools have been reported no urinary symptoms no other complaints voiced. All concerns addressed to the best my abilities plan of care explained in detail reassurance provided 2/3: Patient in acute distress seems to be worse compared to yesterday and he refers feeling that his airway is "closing". Patient was try to be put on BiPAP overnight but he felt claustrophobic and worsen his condition. Transferred to the intensive care unit for Vapotherm 08/26: Afebrile. On 30l/min vapotherm currently. Coughing significantly, productive. No chest pain. Has good appetite. Feels better laying on his right side. Initiated on remdesivir. 08/27: Afebrile. 30 L minute Vapotherm. Slept better last night than previously. Coughing up white sputum. Good appetite. Remdesivir day 2 08/28: Afebrile. Still requiring 30 L minute Vapotherm 100% with O2 saturations 94%. Slept well again. Still with persistent cough though it is no longer as productive. Bronchospasm improving slightly with albuterol. Afebrile. Still requiring 30 L/min on Vapotherm but down to 80% FiO2. O2 saturations 92%. Slept well. Cough is still productive but less violent. Remdesivir day 4 today. Plan: Up to chair Increase insulin coverage Cont ICU care CC time 38 min Vitals/I&O Vitals/I&O: Vital Signs Date Time Temp Pulse Resp B/P (MAP) Pulse Ox O2 Delivery O2 Flow Rate FiO2 08/29/20 08:06 94 VAPOTHERM 30.0 08/29/20 06:00 56 28 132/76 (94) 08/29/20 04:00 97.6 97.6 I & O 08/28/20 08/28/20 08/29/20 15:00 23:00 07:00 Intake Total 870 ml 650 ml 210 ml Output Total 400 ml 1200 ml 900 ml Balance 470 ml -550 ml -690 ml Physical Exam Physical Exam: GEN: No apparent distress. Alert and oriented HEENT: Normal cephalic, atraumatic, external auditory canals are patent. Mucous membranes are moist EYES: Extraocular muscles are intact, pupil are equally round and reactive to light and accommodation. MUSCULOSKELETAL: Well developed , well nourished, good range of motion ENDOCRINE: No thyromegaly was palpated LYMPHATICS: No cervical chain or axillary nodes were noted HEMATOPOIETIC: No bruising NECK: Supple, no JVD, no thyromegaly was noted LUNGS: Coarse to auscultation bilaterally with bilateral rhonchi and crackles bilateral lung bases accessory muscle use and increasing work of breathing has been noted HEART: RRR, S!, S2 present. Peripheral pulses intact, no obvious murmurs noted ABDOMEN: Soft, nontender. Positive bowel sounds, no organomegaly, normal bowel sounds EXTREMITIES: Without clubbing, cyanosis, or edema. Pedal pulses intact. Negative Homans sign NEUROLOGIC: Normal speech and tone. A&O x 3, moves all extremities, no obvious focal deficits PSYCHIATRIC: Normal affect, normal mood. Stable SKIN: No ulcerations or rashes, good skin turgor, no jaundice VASCULAR: Good capillary refill, neurovascular bundle appears to be intact Labs Labs: Laboratory Tests Test 08/28/20 12:23 08/28/20 16:40 08/28/20 20:29 08/29/20 03:30 Glucose (Fingerstick) 313 mg/dL (70-99) 278 mg/dL (70-99) 263 mg/dL (70-99) Sodium Level 135 mmol/L (136-145) Potassium Level 4.2 mmol/L (3.5-5.1) Chloride Level 100 mmol/L (98-107) Carbon Dioxide Level 28 mmol/L (21-32) Anion Gap 7 (6-14) Blood Urea Nitrogen 21 mg/dL (8-26) Creatinine 0.9 mg/dL (0.7-1.3) Estimated GFR (Cockcroft-Gault) 89.3 BUN/Creatinine Ratio 23 (6-20) Glucose Level 278 mg/dL (70-99) Calcium Level 8.3 mg/dL (8.5-10.1) Total Bilirubin 0.4 mg/dL (0.2-1.0) Aspartate Amino Transf (AST/SGOT) 19 U/L (15-37) Alanine Aminotransferase (ALT/SGPT) 42 U/L (16-63) Alkaline Phosphatase 63 U/L (46-116) Total Protein 6.2 g/dL (6.4-8.2) Albumin 2.4 g/dL (3.4-5.0) Albumin/Globulin Ratio 0.6 (1.0-1.7) Test 08/29/20 08:33 Glucose (Fingerstick) 237 mg/dL (70-99) Assessment and Plan Assessmemt and Plan Problems Medical Problems: (1) Bilateral pneumonia Status: Acute (2) Community acquired pneumonia Status: Acute (3) COVID-19 Status: Acute (4) Hypoxia Status: Acute Comment Review of Relevant I have reviewed the following items kasey (where applicable) has been applied. Medications: Current Medications Medications (Trade) Dose Ordered Sig/Rosa Route PRN Reason Start Time Stop Time Status Last Admin Dose Admin Benzonatate (Tessalon Perle) 100 mg [id number] PO 08/28/20 14:00 08/29/20 08:20 Benzonatate (Tessalon Perle) 100 mg 1X ONCE PO 08/28/20 10:30 08/28/20 10:31 DC 08/28/20 11:12 Guaifenesin (Robitussin Dm) 10 ml PRN Q6HRS PRN PO COUGH 08/28/20 11:15 08/29/20 00:15 Tramadol HCl (Ultram) 50 mg PRN Q6HRS PRN PO MODERATE-SEVERE PAIN 08/28/20 12:30 08/29/20 03:41 Justifications for Admission Other Justification COVID 19 LALIT BAIG MD Aug 29, 2020 09:26
--- NOTE | 2020-08-29 09:48 | PDOC ---
PULMONARY PROGRESS NOTES DATE: 08/29/20 TIME: 09:47 Subjective resting comfortably on vapotherm 80% and 30 L no overnight concerns no increased SOA or cough Vitals Vital Signs Date Time Temp Pulse Resp B/P (MAP) Pulse Ox O2 Delivery O2 Flow Rate FiO2 08/29/20 08:06 94 VAPOTHERM 30.0 08/29/20 06:00 56 28 132/76 (94) 08/29/20 04:00 97.6 97.6 Comments visual exam done due to COVID-19 no soa, no leg edema, no rash ROS: No Chest Pain, No Increase Cough General: Alert Skin: Dry Labs Laboratory Tests Test 08/27/20 12:21 08/27/20 17:11 08/27/20 20:20 08/28/20 04:45 Glucose (Fingerstick) 248 mg/dL (70-99) 277 mg/dL (70-99) 246 mg/dL (70-99) White Blood Count 12.6 x10^3/uL (4.0-11.0) Red Blood Count 4.86 x10^6/uL (4.30-5.70) Hemoglobin 13.8 g/dL (13.0-17.5) Hematocrit 41.0 % (39.0-53.0) Mean Corpuscular Volume 84 fL (79-100) Mean Corpuscular Hemoglobin 29 pg (25-35) Mean Corpuscular Hemoglobin Concent 34 g/dL (31-37) Red Cell Distribution Width 13.2 % (11.5-14.5) Platelet Count 378 x10^3/uL (140-400) Neutrophils (%) (Auto) 89 % (31-73) Lymphocytes (%) (Auto) 7 % (24-48) Monocytes (%) (Auto) 4 % (0-9) Eosinophils (%) (Auto) 0 % (0-3) Basophils (%) (Auto) 0 % (0-3) Neutrophils # (Auto) 11.1 x10^3/uL (1.8-7.7) Lymphocytes # (Auto) 0.9 x10^3/uL (1.0-4.8) Monocytes # (Auto) 0.5 x10^3/uL (0.0-1.1) Eosinophils # (Auto) 0.0 x10^3/uL (0.0-0.7) Basophils # (Auto) 0.0 x10^3/uL (0.0-0.2) Sodium Level 136 mmol/L (136-145) Potassium Level 3.9 mmol/L (3.5-5.1) Chloride Level 100 mmol/L (98-107) Carbon Dioxide Level 25 mmol/L (21-32) Anion Gap 11 (6-14) Blood Urea Nitrogen 23 mg/dL (8-26) Creatinine 0.9 mg/dL (0.7-1.3) Estimated GFR (Cockcroft-Gault) 89.3 BUN/Creatinine Ratio 26 (6-20) Glucose Level 318 mg/dL (70-99) Calcium Level 8.6 mg/dL (8.5-10.1) Total Bilirubin 0.4 mg/dL (0.2-1.0) Aspartate Amino Transf (AST/SGOT) 21 U/L (15-37) Alanine Aminotransferase (ALT/SGPT) 44 U/L (16-63) Alkaline Phosphatase 66 U/L (46-116) Total Protein 6.3 g/dL (6.4-8.2) Albumin 2.4 g/dL (3.4-5.0) Albumin/Globulin Ratio 0.6 (1.0-1.7) Test 08/28/20 08:53 08/28/20 12:23 08/28/20 16:40 08/28/20 20:29 Glucose (Fingerstick) 270 mg/dL (70-99) 313 mg/dL (70-99) 278 mg/dL (70-99) 263 mg/dL (70-99) Test 08/29/20 03:30 08/29/20 08:33 Sodium Level 135 mmol/L (136-145) Potassium Level 4.2 mmol/L (3.5-5.1) Chloride Level 100 mmol/L (98-107) Carbon Dioxide Level 28 mmol/L (21-32) Anion Gap 7 (6-14) Blood Urea Nitrogen 21 mg/dL (8-26) Creatinine 0.9 mg/dL (0.7-1.3) Estimated GFR (Cockcroft-Gault) 89.3 BUN/Creatinine Ratio 23 (6-20) Glucose Level 278 mg/dL (70-99) Calcium Level 8.3 mg/dL (8.5-10.1) Total Bilirubin 0.4 mg/dL (0.2-1.0) Aspartate Amino Transf (AST/SGOT) 19 U/L (15-37) Alanine Aminotransferase (ALT/SGPT) 42 U/L (16-63) Alkaline Phosphatase 63 U/L (46-116) Total Protein 6.2 g/dL (6.4-8.2) Albumin 2.4 g/dL (3.4-5.0) Albumin/Globulin Ratio 0.6 (1.0-1.7) Glucose (Fingerstick) 237 mg/dL (70-99) Laboratory Tests Test 08/28/20 12:23 08/28/20 16:40 08/28/20 20:29 08/29/20 03:30 Glucose (Fingerstick) 313 mg/dL (70-99) 278 mg/dL (70-99) 263 mg/dL (70-99) Sodium Level 135 mmol/L (136-145) Potassium Level 4.2 mmol/L (3.5-5.1) Chloride Level 100 mmol/L (98-107) Carbon Dioxide Level 28 mmol/L (21-32) Anion Gap 7 (6-14) Blood Urea Nitrogen 21 mg/dL (8-26) Creatinine 0.9 mg/dL (0.7-1.3) Estimated GFR (Cockcroft-Gault) 89.3 BUN/Creatinine Ratio 23 (6-20) Glucose Level 278 mg/dL (70-99) Calcium Level 8.3 mg/dL (8.5-10.1) Total Bilirubin 0.4 mg/dL (0.2-1.0) Aspartate Amino Transf (AST/SGOT) 19 U/L (15-37) Alanine Aminotransferase (ALT/SGPT) 42 U/L (16-63) Alkaline Phosphatase 63 U/L (46-116) Total Protein 6.2 g/dL (6.4-8.2) Albumin 2.4 g/dL (3.4-5.0) Albumin/Globulin Ratio 0.6 (1.0-1.7) Test 08/29/20 08:33 Glucose (Fingerstick) 237 mg/dL (70-99) Comments CT chest MPRESSION: Multifocal opacities throughout the bilateral lungs. Differential considerations would include bilateral infection including from viral etiology. A component of edema is not excluded given the groundglass component. Liver is low density which can be seen with fatty infiltration. Nondiagnostic evaluation for pulmonary embolus secondary to almost no contrast within the pulmonary arteries and motion. Prominent lymph nodes in the mediastinum and hilum could be reactive to the pulmonic process Impression . IMPRESSION: 1. Acute hypoxemic respiratory failure secondary to COVID-19 viral pneumonia./ ARDS/ ALI 2. COVID-19 viral pneumonia[address] CT chest related to COVID-19. 4. Possible gram-positive, gram-negative pneumonia. 5. Hyperglycemia. 6. Morbid obesity. Plan . PLAN: continue supplemental oxygen with vapotherm 80%FIO2, monitor for respiratory distress Follow CXR/ABG PRN COVID + on 08/13 Continue ABX with rocephin and azithromycin Continue steroids will need full 10 day course Remdesivir started per PCP finish full course Hyperglycemia per PCP DVT/GI PPX D/W RN and RT PHYLICIA FLANAGAN MD Aug 29, 2020 09:48
[2020-08-29] MEDS: REMDESIVIR 100mg in NORMAL SALINE 250ML X 4 DAYS IV SCH (09:50)
[2020-08-29] MEDS: INSULIN LISPRO 300 UNITS/3 ML VIAL. SQ SCH ×5 (09:57→17:26)
[2020-08-29] MEDS: ACETAMINOPHEN 325 MG TABLET. PO PRN (14:32)
[2020-08-29] MEDS: cefTRIAXone IV Push 1 GM VIAL. IVP SCH (21:51)
[2020-08-30] VITALS (19 sets, daily range): BP systolic 111–144; BP diastolic 58–82
[2020-08-30] MEDS: guaiFENesin DM 200MG/20MG 10 ML SYRUP PO PRN (04:00)
[2020-08-30] MEDS: traMADol 50 MG TABLET PO PRN ×2 (04:00→20:44)
[2020-08-30] MEDS: methylPREDNISolone SOD SUCC PF 40 MG/ML VIAL. IV SCH ×3 (06:00→21:48)
[2020-08-30 06:36] LABS: BASO % 0 % (0-3); EOS % 0 % (0-3); HEMATOCRIT 41.5 % (39.0-53.0); HEMOGLOBIN 13.7 g/dL (13.0-17.5); LYMPH # 0.8 x10^3/uL (1.0-4.8); LYMPH % 6 % (24-48); MEAN CORPUSCULAR HEMOGLOBIN 28 pg (25-35); MEAN CORPUSCULAR HGB CONC 33 g/dL (31-37); MEAN CORPUSCULAR VOLUME 85 fL (79-100); MONO # 0.7 x10^3/uL (0.0-1.1); MONO % 6 % (0-9); NEUT # 11.1 x10^3/uL (1.8-7.7); NEUT % 88 % (31-73); PLATELET COUNT 366 x10^3/uL (140-400); RED BLOOD COUNT 4.91 x10^6/uL (4.30-5.70); RED CELL DISTRIBUTION WIDTH 13.4 % (11.5-14.5); WHITE BLOOD COUNT 12.6 x10^3/uL (4.0-11.0)
[2020-08-30 07:01] LABS: ALBUMIN 2.3 g/dL (3.4-5.0); ALBUMIN/GLOBULIN RATIO 0.6 (1.0-1.7); CALCIUM 8.3 mg/dL (8.5-10.1); CREATININE 0.9 mg/dL (0.7-1.3); GFR 89.3; TOTAL BILIRUBIN 0.4 mg/dL (0.2-1.0); TOTAL PROTEIN 5.9 g/dL (6.4-8.2)
[2020-08-30 07:17] LABS: % BANDS 2 % (0-9); % LYMPHS 5 % (24-48); % MONOS 8 % (0-10); % SEGS 85 % (35-66); PLT ESTIMATE ADEQUATE (ADEQUATE)
[2020-08-30] MEDS: ENOXAPARIN 40 MG/0.4 ML SYRINGE. SQ SCH ×2 (08:23→20:38)
[2020-08-30] MEDS: LACTOBACILLUS RHAMNOSUS GG 1 CAPSULE. PO SCH ×2 (08:23→20:37)
[2020-08-30] MEDS: ZINC SULFATE 220 MG CAPSULE. PO SCH (08:23)
[2020-08-30] MEDS: BENZONATATE 100 MG CAPSULE. PO SCH ×3 (08:23→20:37)
[2020-08-30] MEDS: CHOLECALCIFEROL (VITAMIN D3) 1,000 UNIT TABLET PO SCH (08:23)
[2020-08-30] MEDS: ASCORBIC ACID 500 MG TABLET PO SCH ×3 (08:23→20:38)
[2020-08-30] MEDS: REMDESIVIR 100mg in NORMAL SALINE 250ML X 4 DAYS IV SCH (08:24)
[2020-08-30] MEDS: INSULIN GLARGINE SYRINGE. SQ SCH ×2 (08:44→20:38)
[2020-08-30] MEDS: INSULIN LISPRO 300 UNITS/3 ML VIAL. SQ SCH ×6 (08:45→17:28)
[2020-08-30] MEDS: SENNOSIDES/DOCUSATE 8.6/50MG TABLET. PO SCH ×2 (08:46→20:45)
--- NOTE | 2020-08-30 09:41 | PDOC ---
PULMONARY PROGRESS NOTES DATE: 08/30/20 TIME: 09:40 Subjective resting comfortably off vapotherm , on 15 litres nc no overnight concerns no increased SOA or cough Vitals Vital Signs Date Time Temp Pulse Resp B/P (MAP) Pulse Ox O2 Delivery O2 Flow Rate FiO2 08/30/20 09:00 64 24 144/80 (101) 100 High Flow Nasal Cannula 15.0 08/30/20 08:00 98.3 98.3 Comments visual exam done due to COVID-19 no soa, no leg edema, no rash ROS: No Chest Pain, No Increase Cough General: Alert Skin: Dry Labs Laboratory Tests Test 08/28/20 12:23 08/28/20 16:40 08/28/20 20:29 08/29/20 03:30 Glucose (Fingerstick) 313 mg/dL (70-99) 278 mg/dL (70-99) 263 mg/dL (70-99) Sodium Level 135 mmol/L (136-145) Potassium Level 4.2 mmol/L (3.5-5.1) Chloride Level 100 mmol/L (98-107) Carbon Dioxide Level 28 mmol/L (21-32) Anion Gap 7 (6-14) Blood Urea Nitrogen 21 mg/dL (8-26) Creatinine 0.9 mg/dL (0.7-1.3) Estimated GFR (Cockcroft-Gault) 89.3 BUN/Creatinine Ratio 23 (6-20) Glucose Level 278 mg/dL (70-99) Calcium Level 8.3 mg/dL (8.5-10.1) Total Bilirubin 0.4 mg/dL (0.2-1.0) Aspartate Amino Transf (AST/SGOT) 19 U/L (15-37) Alanine Aminotransferase (ALT/SGPT) 42 U/L (16-63) Alkaline Phosphatase 63 U/L (46-116) Total Protein 6.2 g/dL (6.4-8.2) Albumin 2.4 g/dL (3.4-5.0) Albumin/Globulin Ratio 0.6 (1.0-1.7) Test 08/29/20 08:33 08/29/20 11:40 08/29/20 17:12 08/29/20 20:53 Glucose (Fingerstick) 237 mg/dL (70-99) 236 mg/dL (70-99) 247 mg/dL (70-99) 385 mg/dL (70-99) Test 08/30/20 06:23 08/30/20 08:33 White Blood Count 12.6 x10^3/uL (4.0-11.0) Red Blood Count 4.91 x10^6/uL (4.30-5.70) Hemoglobin 13.7 g/dL (13.0-17.5) Hematocrit 41.5 % (39.0-53.0) Mean Corpuscular Volume 85 fL (79-100) Mean Corpuscular Hemoglobin 28 pg (25-35) Mean Corpuscular Hemoglobin Concent 33 g/dL (31-37) Red Cell Distribution Width 13.4 % (11.5-14.5) Platelet Count 366 x10^3/uL (140-400) Neutrophils (%) (Auto) 88 % (31-73) Lymphocytes (%) (Auto) 6 % (24-48) Monocytes (%) (Auto) 6 % (0-9) Eosinophils (%) (Auto) 0 % (0-3) Basophils (%) (Auto) 0 % (0-3) Neutrophils # (Auto) 11.1 x10^3/uL (1.8-7.7) Lymphocytes # (Auto) 0.8 x10^3/uL (1.0-4.8) Monocytes # (Auto) 0.7 x10^3/uL (0.0-1.1) Eosinophils # (Auto) 0.0 x10^3/uL (0.0-0.7) Basophils # (Auto) 0.0 x10^3/uL (0.0-0.2) Segmented Neutrophils % 85 % (35-66) Band Neutrophils % 2 % (0-9) Lymphocytes % 5 % (24-48) Monocytes % 8 % (0-10) Platelet Estimate Adequate (ADEQUATE) Sodium Level 133 mmol/L (136-145) Potassium Level 4.0 mmol/L (3.5-5.1) Chloride Level 98 mmol/L (98-107) Carbon Dioxide Level 28 mmol/L (21-32) Anion Gap 7 (6-14) Blood Urea Nitrogen 18 mg/dL (8-26) Creatinine 0.9 mg/dL (0.7-1.3) Estimated GFR (Cockcroft-Gault) 89.3 BUN/Creatinine Ratio 20 (6-20) Glucose Level 295 mg/dL (70-99) Calcium Level 8.3 mg/dL (8.5-10.1) Total Bilirubin 0.4 mg/dL (0.2-1.0) Aspartate Amino Transf (AST/SGOT) 19 U/L (15-37) Alanine Aminotransferase (ALT/SGPT) 41 U/L (16-63) Alkaline Phosphatase 57 U/L (46-116) Total Protein 5.9 g/dL (6.4-8.2) Albumin 2.3 g/dL (3.4-5.0) Albumin/Globulin Ratio 0.6 (1.0-1.7) Glucose (Fingerstick) 237 mg/dL (70-99) Laboratory Tests Test 08/29/20 11:40 08/29/20 17:12 08/29/20 20:53 08/30/20 06:23 Glucose (Fingerstick) 236 mg/dL (70-99) 247 mg/dL (70-99) 385 mg/dL (70-99) White Blood Count 12.6 x10^3/uL (4.0-11.0) Red Blood Count 4.91 x10^6/uL (4.30-5.70) Hemoglobin 13.7 g/dL (13.0-17.5) Hematocrit 41.5 % (39.0-53.0) Mean Corpuscular Volume 85 fL (79-100) Mean Corpuscular Hemoglobin 28 pg (25-35) Mean Corpuscular Hemoglobin Concent 33 g/dL (31-37) Red Cell Distribution Width 13.4 % (11.5-14.5) Platelet Count 366 x10^3/uL (140-400) Neutrophils (%) (Auto) 88 % (31-73) Lymphocytes (%) (Auto) 6 % (24-48) Monocytes (%) (Auto) 6 % (0-9) Eosinophils (%) (Auto) 0 % (0-3) Basophils (%) (Auto) 0 % (0-3) Neutrophils # (Auto) 11.1 x10^3/uL (1.8-7.7) Lymphocytes # (Auto) 0.8 x10^3/uL (1.0-4.8) Monocytes # (Auto) 0.7 x10^3/uL (0.0-1.1) Eosinophils # (Auto) 0.0 x10^3/uL (0.0-0.7) Basophils # (Auto) 0.0 x10^3/uL (0.0-0.2) Segmented Neutrophils % 85 % (35-66) Band Neutrophils % 2 % (0-9) Lymphocytes % 5 % (24-48) Monocytes % 8 % (0-10) Platelet Estimate Adequate (ADEQUATE) Sodium Level 133 mmol/L (136-145) Potassium Level 4.0 mmol/L (3.5-5.1) Chloride Level 98 mmol/L (98-107) Carbon Dioxide Level 28 mmol/L (21-32) Anion Gap 7 (6-14) Blood Urea Nitrogen 18 mg/dL (8-26) Creatinine 0.9 mg/dL (0.7-1.3) Estimated GFR (Cockcroft-Gault) 89.3 BUN/Creatinine Ratio 20 (6-20) Glucose Level 295 mg/dL (70-99) Calcium Level 8.3 mg/dL (8.5-10.1) Total Bilirubin 0.4 mg/dL (0.2-1.0) Aspartate Amino Transf (AST/SGOT) 19 U/L (15-37) Alanine Aminotransferase (ALT/SGPT) 41 U/L (16-63) Alkaline Phosphatase 57 U/L (46-116) Total Protein 5.9 g/dL (6.4-8.2) Albumin 2.3 g/dL (3.4-5.0) Albumin/Globulin Ratio 0.6 (1.0-1.7) Test 08/30/20 08:33 Glucose (Fingerstick) 237 mg/dL (70-99) Comments CT chest MPRESSION: Multifocal opacities throughout the bilateral lungs. Differential considerations would include bilateral infection including from viral etiology. A component of edema is not excluded given the groundglass component. Liver is low density which can be seen with fatty infiltration. Nondiagnostic evaluation for pulmonary embolus secondary to almost no contrast within the pulmonary arteries and motion. Prominent lymph nodes in the mediastinum and hilum could be reactive to the pulmonic process Impression . IMPRESSION: 1. Acute hypoxemic respiratory failure secondary to COVID-19 viral pneumonia./ ARDS/ ALI 2. COVID-19 viral pneumonia. [address] chest related to COVID-19. 4. Possible gram-positive, gram-negative pneumonia. 5. Hyperglycemia. 6. Morbid obesity. Plan . PLAN: continue supplemental oxygen with 15 litres N/C, monitor for respiratory distress , off vapotherm Follow CXR/ABG PRN COVID + on 08/13 Continue ABX with rocephin and azithromycin Continue steroids will need full 10 day course Remdesivir started per PCP finish full course Hyperglycemia per PCP DVT/GI PPX D/W RN and RT PHYLICIA FLANAGAN MD Aug 30, 2020 09:41
[2020-08-30] MEDS: BENZOCAINE/MENTHOL LOZENGE. PO PRN (10:43)
--- NOTE | 2020-08-30 11:50 | PDOC ---
[facility] PROGRESS NOTE Date of Service DOS: DATE: 08/30/20 TIME: 11:48 Chief Complaint Chief Complaint COVID-19 Acute hypoxemic respiratory failure secondary to the above Community acquired bacterial pneumonia DM2 with Hyperglycemia Morbid obesity with a BMI of 45 Moderate malnutrition Moderate dehydration History of Present Illness History of Present Illness 08/30/2020 Patient seen and examined in the COVID-19 ICU He is currently on Vapotherm Appears ill Discussed with RN Discussed with case management He is getting his last dose of remdesivir today Mr Shaffer is a 50-year-old gentleman who was in his usual state of health until approximately August 13 even a couple of days prior to that he felt generalized malaise headache upper respiratory tract infection symptoms finally got tested for COVID-19 and his result came back positive on August 13. The patient was given supportive measures at home and he tried to self medicate with Tylenol vitamins and staying well-hydrated nevertheless the day prior to his admission he started complaining of worsening cough he had not required oxygen at home but after a coughing spell which brought upon purulent looking mucus his oxygen levels that he had been checking at home and had been staying in the 95% range dropped into the 70s reason why he decided to come to our emergency department for further evaluation and treatment. Given the acuity of his presentation we are asked to admit since the patient is requiring 15 L of oxygen at this point. The patient denies any slurred speech no dysphagia odynophagia no focal neurological deficits no chest pain palpitations, worsening shortness of breath has been reported, he denies nausea but due to the coughing spell he vomited on one occasion. No hematemesis no hematochezia no black tarry stools have been reported no urinary symptoms no other complaints voiced. All concerns addressed to the best my abilities plan of care explained in detail reassurance provided 3: Patient in acute distress seems to be worse compared to yesterday and he refers feeling that his airway is "closing". Patient was try to be put on BiPAP overnight but he felt claustrophobic and worsen his condition. Transferred to the intensive care unit for Vapotherm 08/26: Afebrile. On 30l/min vapotherm currently. Coughing significantly, productive. No chest pain. Has good appetite. Feels better laying on his right side. Initiated on remdesivir. 08/27: Afebrile. 30 L minute Vapotherm. Slept better last night than previously. Coughing up white sputum. Good appetite. Remdesivir day 2 08/28: Afebrile. Still requiring 30 L minute Vapotherm 100% with O2 saturations 94%. Slept well again. Still with persistent cough though it is no longer as productive. Bronchospasm improving slightly with albuterol. Afebrile. Still requiring 30 L/min on Vapotherm but down to 80% FiO2. O2 saturations 92%. Slept well. Cough is still productive but less violent. Remdesivir day 4 today. Plan: Up to chair Increase insulin coverage Cont ICU care CC time 38 min Vitals/I&O Vitals/I&O: Vital Signs Date Time Temp Pulse Resp B/P (MAP) Pulse Ox O2 Delivery O2 Flow Rate FiO2 08/30/20 11:14 97 High Flow Nasal Cannula 15.0 08/30/20 11:00 60 18 123/65 (84) 08/30/20 08:00 98.3 98.3 I & O 08/29/20 08/29/20 08/30/20 15:00 23:00 07:00 Intake Total 730 ml 600 ml 0 ml Output Total 700 ml 900 ml 400 ml Balance 30 ml -300 ml -400 ml Physical Exam Physical Exam: GEN: No apparent distress. Alert and oriented HEENT: Normal cephalic, atraumatic, external auditory canals are patent. Mucous membranes are moist EYES: Extraocular muscles are intact, pupil are equally round and reactive to light and accommodation. MUSCULOSKELETAL: Well developed , well nourished, good range of motion ENDOCRINE: No thyromegaly was palpated LYMPHATICS: No cervical chain or axillary nodes were noted HEMATOPOIETIC: No bruising NECK: Supple, no JVD, no thyromegaly was noted LUNGS: Coarse to auscultation bilaterally with bilateral rhonchi and crackles bilateral lung bases accessory muscle use and increasing work of breathing has been noted HEART: RRR, S!, S2 present. Peripheral pulses intact, no obvious murmurs n oted ABDOMEN: Soft, nontender. Positive bowel sounds, no organomegaly, normal bowel sounds EXTREMITIES: Without clubbing, cyanosis, or edema. Pedal pulses intact. Negative Homans sign NEUROLOGIC: Normal speech and tone. A&O x 3, moves all extremities, no obvious focal deficits PSYCHIATRIC: Normal affect, normal mood. Stable SKIN: No ulcerations or rashes, good skin turgor, no jaundice VASCULAR: Good capillary refill, neurovascular bundle appears to be intact General: mild distress Heart: Other (Tachycardic) Lungs: Crackles Abdomen: Soft Extremities: No clubbing Skin: No rashes Labs Labs: Laboratory Tests Test 08/29/20 17:12 08/29/20 20:53 08/30/20 06:23 08/30/20 08:33 Glucose (Fingerstick) 247 mg/dL (70-99) 385 mg/dL (70-99) 237 mg/dL (70-99) White Blood Count 12.6 x10^3/uL (4.0-11.0) Red Blood Count 4.91 x10^6/uL (4.30-5.70) Hemoglobin 13.7 g/dL (13.0-17.5) Hematocrit 41.5 % (39.0-53.0) Mean Corpuscular Volume 85 fL (79-100) Mean Corpuscular Hemoglobin 28 pg (25-35) Mean Corpuscular Hemoglobin Concent 33 g/dL (31-37) Red Cell Distribution Width 13.4 % (11.5-14.5) Platelet Count 366 x10^3/uL (140-400) Neutrophils (%) (Auto) 88 % (31-73) Lymphocytes (%) (Auto) 6 % (24-48) Monocytes (%) (Auto) 6 % (0-9) Eosinophils (%) (Auto) 0 % (0-3) Basophils (%) (Auto) 0 % (0-3) Neutrophils # (Auto) 11.1 x10^3/uL (1.8-7.7) Lymphocytes # (Auto) 0.8 x10^3/uL (1.0-4.8) Monocytes # (Auto) 0.7 x10^3/uL (0.0-1.1) Eosinophils # (Auto) 0.0 x10^3/uL (0.0-0.7) Basophils # (Auto) 0.0 x10^3/uL (0.0-0.2) Segmented Neutrophils % 85 % (35-66) Band Neutrophils % 2 % (0-9) Lymphocytes % 5 % (24-48) Monocytes % 8 % (0-10) Platelet Estimate Adequate (ADEQUATE) Sodium Level 133 mmol/L (136-145) Potassium Level 4.0 mmol/L (3.5-5.1) Chloride Level 98 mmol/L (98-107) Carbon Dioxide Level 28 mmol/L (21-32) Anion Gap 7 (6-14) Blood Urea Nitrogen 18 mg/dL (8-26) Creatinine 0.9 mg/dL (0.7-1.3) Estimated GFR (Cockcroft-Gault) 89.3 BUN/Creatinine Ratio 20 (6-20) Glucose Level 295 mg/dL (70-99) Calcium Level 8.3 mg/dL (8.5-10.1) Total Bilirubin 0.4 mg/dL (0.2-1.0) Aspartate Amino Transf (AST/SGOT) 19 U/L (15-37) Alanine Aminotransferase (ALT/SGPT) 41 U/L (16-63) Alkaline Phosphatase 57 U/L (46-116) Total Protein 5.9 g/dL (6.4-8.2) Albumin 2.3 g/dL (3.4-5.0) Albumin/Globulin Ratio 0.6 (1.0-1.7) Review of Systems Review of Systems: Complains of shortness of breath complains of weakness and cough Assessment and Plan Assessmemt and Plan Problems Medical Problems: (1) Bilateral pneumonia Status: Acute (2) Community acquired pneumonia Status: Acute (3) COVID-19 Status: Acute (4) Hypoxia Status: Acute COVID-19 infection - remdesivir initiated 08/26/20. Solu-Medrol 40 mg every 8 hour s, zinc, vitamin c. Pulm following with vapotherm O2 Acute hypoxemic respiratory failure secondary to the above Community acquired bacterial pneumonia - with covid 19 likely gram negative, broad-spectrum antibiotics empirically for superimposed community-acquired pneumonia with Rocephin and Zithromax Hypokalemia DM2 with Hyperglycemia - high sliding scale Morbid obesity with a BMI of 45 Moderate malnutrition Moderate dehydration Plan ICU monitoring Respiratory isolation Continue Vapotherm Covid protocol Home meds DVT prophylaxis Full code Appreciate subspecialist input Prognosis guarded CC time 31 minutes Comment Review of Relevant I have reviewed the following items kasey (where applicable) has been applied. Justifications for Admission Other Justification COVID 19 JASON GU III DO Aug 30, 2020 11:50
[2020-08-30] MEDS: cefTRIAXone IV Push 1 GM VIAL. IVP SCH (21:48)
[2020-08-31 03:00] VITALS: BP 137/84
[2020-08-31] MEDS: methylPREDNISolone SOD SUCC PF 40 MG/ML VIAL. IV SCH ×3 (06:04→22:59)
[2020-08-31 07:00] VITALS: BP 119/78
[2020-08-31] MEDS: INSULIN LISPRO 300 UNITS/3 ML VIAL. SQ SCH ×6 (08:20→16:44)
[2020-08-31] MEDS: ASCORBIC ACID 500 MG TABLET PO SCH ×3 (08:49→22:49)
[2020-08-31] MEDS: SENNOSIDES/DOCUSATE 8.6/50MG TABLET. PO SCH ×2 (08:49→22:58)
[2020-08-31] MEDS: BENZONATATE 100 MG CAPSULE. PO SCH ×3 (08:49→22:58)
[2020-08-31] MEDS: ENOXAPARIN 40 MG/0.4 ML SYRINGE. SQ SCH ×2 (08:50→22:59)
[2020-08-31] MEDS: LACTOBACILLUS RHAMNOSUS GG 1 CAPSULE. PO SCH ×2 (08:50→22:58)
[2020-08-31] MEDS: CHOLECALCIFEROL (VITAMIN D3) 1,000 UNIT TABLET PO SCH (08:50)
[2020-08-31] MEDS: ZINC SULFATE 220 MG CAPSULE. PO SCH (08:50)
[2020-08-31] MEDS: INSULIN GLARGINE SYRINGE. SQ SCH ×2 (09:07→23:00)
[2020-08-31 11:00] VITALS: BP 151/78
[2020-08-31 15:00] VITALS: BP 132/83
--- NOTE | 2020-08-31 15:06 | PDOC ---
PULMONARY PROGRESS NOTES DATE: 08/31/20 TIME: 15:05 Subjective Patient off of Vapotherm on nasal cannula oxygen feels better less short of breath appetite is adequate Vitals Vital Signs Date Time Temp Pulse Resp B/P (MAP) Pulse Ox O2 Delivery O2 Flow Rate FiO2 08/31/20 11:00 96.9 93 20 151/78 (102) 92 Nasal Cannula 10.0 96.9 Comments visual exam done due to COVID-19 no soa, no leg edema, no rash ROS: No Chest Pain, No Increase Cough General: Alert Lungs: Crackles Skin: Dry Labs Laboratory Tests Test 08/29/20 17:12 08/29/20 20:53 08/30/20 06:23 08/30/20 08:33 Glucose (Fingerstick) 247 mg/dL (70-99) 385 mg/dL (70-99) 237 mg/dL (70-99) White Blood Count 12.6 x10^3/uL (4.0-11.0) Red Blood Count 4.91 x10^6/uL (4.30-5.70) Hemoglobin 13.7 g/dL (13.0-17.5) Hematocrit 41.5 % (39.0-53.0) Mean Corpuscular Volume 85 fL (79-100) Mean Corpuscular Hemoglobin 28 pg (25-35) Mean Corpuscular Hemoglobin Concent 33 g/dL (31-37) Red Cell Distribution Width 13.4 % (11.5-14.5) Platelet Count 366 x10^3/uL (140-400) Neutrophils (%) (Auto) 88 % (31-73) Lymphocytes (%) (Auto) 6 % (24-48) Monocytes (%) (Auto) 6 % (0-9) Eosinophils (%) (Auto) 0 % (0-3) Basophils (%) (Auto) 0 % (0-3) Neutrophils # (Auto) 11.1 x10^3/uL (1.8-7.7) Lymphocytes # (Auto) 0.8 x10^3/uL (1.0-4.8) Monocytes # (Auto) 0.7 x10^3/uL (0.0-1.1) Eosinophils # (Auto) 0.0 x10^3/uL (0.0-0.7) Basophils # (Auto) 0.0 x10^3/uL (0.0-0.2) Segmented Neutrophils % 85 % (35-66) Band Neutrophils % 2 % (0-9) Lymphocytes % 5 % (24-48) Monocytes % 8 % (0-10) Platelet Estimate Adequate (ADEQUATE) Sodium Level 133 mmol/L (136-145) Potassium Level 4.0 mmol/L (3.5-5.1) Chloride Level 98 mmol/L (98-107) Carbon Dioxide Level 28 mmol/L (21-32) Anion Gap 7 (6-14) Blood Urea Nitrogen 18 mg/dL (8-26) Creatinine 0.9 mg/dL (0.7-1.3) Estimated GFR (Cockcroft-Gault) 89.3 BUN/Creatinine Ratio 20 (6-20) Glucose Level 295 mg/dL (70-99) Calcium Level 8.3 mg/dL (8.5-10.1) Total Bilirubin 0.4 mg/dL (0.2-1.0) Aspartate Amino Transf (AST/SGOT) 19 U/L (15-37) Alanine Aminotransferase (ALT/SGPT) 41 U/L (16-63) Alkaline Phosphatase 57 U/L (46-116) Total Protein 5.9 g/dL (6.4-8.2) Albumin 2.3 g/dL (3.4-5.0) Albumin/Globulin Ratio 0.6 (1.0-1.7) Test 08/30/20 12:21 08/30/20 17:22 08/30/20 20:42 08/31/20 07:19 Glucose (Fingerstick) 258 mg/dL (70-99) 166 mg/dL (70-99) 211 mg/dL (70-99) 249 mg/dL (70-99) Test 08/31/20 11:02 08/31/20 15:03 Glucose (Fingerstick) 261 mg/dL (70-99) 236 mg/dL (70-99) Laboratory Tests Test 08/30/20 17:22 08/30/20 20:42 08/31/20 07:19 08/31/20 11:02 Glucose (Fingerstick) 166 mg/dL (70-99) 211 mg/dL (70-99) 249 mg/dL (70-99) 261 mg/dL (70-99) Test 08/31/20 15:03 Glucose (Fingerstick) 236 mg/dL (70-99) Comments CT chest MPRESSION: Multifocal opacities throughout the bilateral lungs. Differential considerations would include bilateral infection including from viral etiology. A component of edema is not excluded given the groundglass component. Liver is low density which can be seen with fatty infiltration. Nondiagnostic evaluation for pulmonary embolus secondary to almost no contrast within the pulmonary arteries and motion. Prominent lymph nodes in the mediastinum and hilum could be reactive to the pulmonic process Impression . IMPRESSION: 1. Acute hypoxemic respiratory failure secondary to COVID-19 viral pneumonia./ ARDS/ ALI 2. COVID-19 viral pneumonia. [address] chest related to COVID-19. 4. Possible gram-positive, gram-negative pneumonia. 5. Hyperglycemia. 6. Morbid obesity. Plan . Transferred out of the intensive care unit, doing better Continue nasal cannula oxygen Follow CXR/ABG PRN COVID + on 08/13 Continue ABX with rocephin and azithromycin Continue steroids will need full 10 day course Remdesivir started per PCP finish full course Hyperglycemia per PCP DVT/GI PPX D/W RN and RT ALEJANDRA EDDY MD Aug 31, 2020 15:06
--- NOTE | 2020-08-31 15:27 | PDOC ---
[facility] [facility] PROGRESS NOTE Date of Service DOS: DATE: 08/31/20 TIME: 15:26 Chief Complaint Chief Complaint COVID-19 Acute hypoxemic respiratory failure secondary to the above Community acquired bacterial pneumonia DM2 with Hyperglycemia Morbid obesity with a BMI of 45 Moderate malnutrition Moderate dehydration History of Present Illness History of Present Illness 08/31/2020 No acute events overnight. Patient transferred to ICU and tolerating 10 L nasal cannula and saturating 91%. No dyspneic symptoms endorsed at this time. PT OT evaluation pending. Patient's chart, labs, images were reviewed and discussed with RN 08/30/2020 Patient seen and examined in the COVID-19 ICU He is currently on Vapotherm Appears ill Discussed with RN Discussed with case management He is getting his last dose of remdesivir today Mr Shaffer is a 50-year-old gentleman who was in his usual state of health until approximately August 13 even a couple of days prior to that he felt generalized malaise headache upper respiratory tract infection symptoms finally got tested for COVID-19 and his result came back positive on August 13. The patient was given supportive measures at home and he tried to self medicate with Tylenol vitamins and staying well-hydrated nevertheless the day prior to his admission h wally started complaining of worsening cough he had not required oxygen at home but after a coughing spell which brought upon purulent looking mucus his oxygen levels that he had been checking at home and had been staying in the 95% range dropped into the 70s reason why he decided to come to our emergency department for further evaluation and treatment. Given the acuity of his presentation we are asked to admit since the patient is requiring 15 L of oxygen at this point. The patient denies any slurred speech no dysphagia odynophagia no focal neurological deficits no chest pain palpitations, worsening shortness of breath has been reported, he denies nausea but due to the coughing spell he vomited on one occasion. No hematemesis no hematochezia no black tarry stools have been reported no urinary symptoms no other complaints voiced. All concerns addressed to the best my abilities plan of care explained in detail reassurance provided 2/3: Patient in acute distress seems to be worse compared to yesterday and he r efers feeling that his airway is "closing". Patient was try to be put on BiPAP overnight but he felt claustrophobic and worsen his condition. Transferred to the intensive care unit for Vapotherm 08/26: Afebrile. On 30l/min vapotherm currently. Coughing significantly, productive. No chest pain. Has good appetite. Feels better laying on his right side. Initiated on remdesivir. 08/27: Afebrile. 30 L minute Vapotherm. Slept better last night than previously. Coughing up white sputum. Good appetite. Remdesivir day 2 08/28: Afebrile. Still requiring 30 L minute Vapotherm 100% with O2 saturations 94%. Slept well again. Still with persistent cough though it is no longer as productive. Bronchospasm improving slightly with albuterol. Afebrile. Still requiring 30 L/min on Vapotherm but down to 80% FiO2. O2 saturations 92%. Slept well. Cough is still productive but less violent. Remdesivir day 4 today. Plan: Up to chair Increase insulin coverage Cont ICU care CC time 38 min Vitals/I&O Vitals/I&O: Vital Signs Date Time Temp Pulse Resp B/P (MAP) Pulse Ox O2 Delivery O2 Flow Rate FiO2 08/31/20 15:00 98.0 86 18 132/83 (99) 93 Nasal Cannula 10.0 98.0 I & O 08/30/20 08/30/20 08/31/20 15:00 23:00 07:00 Intake Total 1190 ml 360 ml Output Total 950 ml 700 ml Balance 240 ml 360 ml -700 ml Physical Exam Physical Exam: GEN: No apparent distress. Alert and oriented HEENT: Normal cephalic, atraumatic, external auditory canals are patent. Mucous membranes are moist EYES: Extraocular muscles are intact, pupil are equally round and reactive to light and accommodation. MUSCULOSKELETAL: Well developed , well nourished, good range of motion ENDOCRINE: No thyromegaly was palpated LYMPHATICS: No cervical chain or axillary nodes were noted HEMATOPOIETIC: No bruising NECK: Supple, no JVD, no thyromegaly was noted LUNGS: Coarse to auscultation bilaterally with bilateral rhonchi and crackles bilateral lung bases accessory muscle use and increasing work of breathing has been noted HEART: RRR, S!, S2 present. Peripheral pulses intact, no obvious murmurs noted ABDOMEN: Soft, nontender. Positive bowel sounds, no organomegaly, normal bowel sounds EXTREMITIES: Without clubbing, cyanosis, or edema. Pedal pulses intact. Negative Homans sign NEUROLOGIC: Normal speech and tone. A&O x 3, moves all extremities, no obvious focal deficits PSYCHIATRIC: Normal affect, normal mood. Stable SKIN: No ulcerations or rashes, good skin turgor, no jaundice VASCULAR: Good capillary refill, neurovascular bundle appears to be intact General: Alert, Oriented X3, Cooperative, mild distress Heart: No murmurs, Other (Tachycardic) Lungs: Crackles Abdomen: Soft Extremities: No clubbing Skin: No rashes Labs Labs: Laboratory Tests Test 08/30/20 17:22 08/30/20 20:42 08/31/20 07:19 08/31/20 11:02 Glucose (Fingerstick) 166 mg/dL (70-99) 211 mg/dL (70-99) 249 mg/dL (70-99) 261 mg/dL (70-99) Test 08/31/20 15:03 Glucose (Fingerstick) 236 mg/dL (70-99) Assessment and Plan Assessmemt and Plan Problems Medical Problems: (1) Bilateral pneumonia Status: Acute (2) Community acquired pneumonia Status: Acute (3) COVID-19 Status: Acute (4) Hypoxia Status: Acute Comment Review of Relevant I have reviewed the following items kasey (where applicable) has been applied. Justifications for Admission Other Justification COVID 19 JAROD BRYANT MD Aug 31, 2020 15:27
[2020-08-31 19:00] VITALS: BP 141/83
[2020-08-31] MEDS: traMADol 50 MG TABLET PO PRN (20:08)
[2020-08-31] MEDS: guaiFENesin DM 200MG/20MG 10 ML SYRUP PO PRN (20:08)
[2020-08-31 23:00] VITALS: BP 135/84
[2020-08-31] MEDS: cefTRIAXone IV Push 1 GM VIAL. IVP SCH (23:00)
[2020-09-01 03:00] VITALS: BP 120/75
[2020-09-01] MEDS: methylPREDNISolone SOD SUCC PF 40 MG/ML VIAL. IV SCH ×3 (06:26→21:39)
[2020-09-01 07:00] VITALS: BP 144/89
[2020-09-01] MEDS: INSULIN LISPRO 300 UNITS/3 ML VIAL. SQ SCH ×6 (08:03→16:35)
[2020-09-01] MEDS: INSULIN GLARGINE SYRINGE. SQ SCH ×2 (08:48→21:40)
[2020-09-01] MEDS: ENOXAPARIN 40 MG/0.4 ML SYRINGE. SQ SCH ×2 (08:49→21:39)
[2020-09-01] MEDS: LACTOBACILLUS RHAMNOSUS GG 1 CAPSULE. PO SCH ×2 (08:49→21:38)
[2020-09-01] MEDS: SENNOSIDES/DOCUSATE 8.6/50MG TABLET. PO SCH ×2 (08:49→21:38)
[2020-09-01] MEDS: ASCORBIC ACID 500 MG TABLET PO SCH ×3 (08:49→21:38)
[2020-09-01] MEDS: ZINC SULFATE 220 MG CAPSULE. PO SCH (08:49)
[2020-09-01] MEDS: BENZONATATE 100 MG CAPSULE. PO SCH ×3 (08:49→21:38)
[2020-09-01] MEDS: guaiFENesin DM 200MG/20MG 10 ML SYRUP PO PRN (08:49)
[2020-09-01] MEDS: CHOLECALCIFEROL (VITAMIN D3) 1,000 UNIT TABLET PO SCH (08:49)
[2020-09-01] MEDS: traMADol 50 MG TABLET PO PRN (08:50)
[2020-09-01 11:00] VITALS: BP 131/75
[2020-09-01] MEDS: ACETAMINOPHEN 325 MG TABLET. PO PRN (11:19)
[2020-09-01 15:00] VITALS: BP 124/74
--- NOTE | 2020-09-01 15:51 | PDOC ---
[facility] [facility] PROGRESS NOTE Date of Service DOS: DATE: 09/01/20 TIME: 15:50 Chief Complaint Chief Complaint COVID-19 Acute hypoxemic respiratory failure secondary to the above Community acquired bacterial pneumonia DM2 with Hyperglycemia Morbid obesity with a BMI of 45 Moderate malnutrition Moderate dehydration History of Present Illness History of Present Illness 09/01/2020 No acute events overnight. Patient continues to be on high flow nasal cannula of 8 L saturating at 88%. Dyspneic upon exertion. Sitting on recliner at rest without any dyspnea or discomfort. Complains of Covid headache fog-like discomfort. Patient's chart, labs, images were reviewed and discussed with RN 08/31/2020 No acute events overnight. Patient transferred to ICU and tolerating 10 L nasal cannula and saturating 91%. No dyspneic symptoms endorsed at this time. PT OT evaluation pending. Patient's chart, labs, images were reviewed and discussed with RN 08/30/2020 Patient seen and examined in the COVID-19 ICU He is currently on Vapotherm Appears ill Discussed with RN Discussed with case management He is getting his last dose of remdesivir today Mr Shaffer is a 50-year-old gentleman who was in his usual state of health until approximately August 13 even a couple of days prior to that he felt generalized malaise headache upper respiratory tract infection symptoms finally got tested for COVID-19 and his result came back positive on August 13. The patient was given supportive measures at home and he tried to self medicate with Tylenol vitamins and staying well-hydrated nevertheless the day prior to his admission he started complaining of worsening cough he had not required oxygen at home but after a coughing spell which brought upon purulent looking mucus his oxygen levels that he had been checking at home and had been staying in the 95% range dropped into the 70s reason why he decided to come to our emergency department for further evaluation and treatment. Given the acuity of his presentation we are asked to admit since the patient is requiring 15 L of oxygen at this point. The patient denies any slurred speech no dysphagia odynophagia no focal neurological deficits no chest pain palpitations, worsening shortness of breath has been reported, he denies nausea but due to the coughing spell he vomited on one occasion. No hematemesis no hematochezia no black tarry stools have been reported no urinary symptoms no other complaints voiced. All concerns addressed to the best my abilities plan of care explained in detail reassurance provided 08/25: Patient in acute distress seems to be worse compared to yesterday and he refers feeling that his airway is "closing". Patient was try to be put on BiPAP overnight but he felt claustrophobic and worsen his condition. Transferred to the intensive care unit for Vapotherm 08/26: Afebrile. On 30l/min vapotherm currently. Coughing significantly, productive. No chest pain. Has good appetite. Feels better laying on his right side. Initiated on remdesivir. 08/27: Afebrile. 30 L minute Vapotherm. Slept better last night than previously. Coughing up white sputum. Good appetite. Remdesivir day 2 08/28: Afebrile. Still requiring 30 L minute Vapotherm 100% with O2 saturations 94%. Slept well again. Still with persistent cough though it is no longer as productive. Bronchospasm improving slightly with albuterol. Afebrile. Still requiring 30 L/min on Vapotherm but down to 80% FiO2. O2 saturations 92%. Slept well. Cough is still productive but less violent. Remdesivir day 4 today. Plan: Up to chair Increase insulin coverage Cont ICU care CC time 38 min Vitals/I&O Vitals/I&O: Vital Signs Date Time Temp Pulse Resp B/P (MAP) Pulse Ox O2 Delivery O2 Flow Rate FiO2 09/01/20 15:00 96.9 75 24 124/74 (91) 97 Nasal Cannula 9.0 96.9 I & O 08/31/20 08/31/20 09/01/20 15:00 23:00 07:00 Intake Total 720 ml Output Total 700 ml 350 ml 800 ml Balance 20 ml -350 ml -800 ml Physical Exam Physical Exam: GEN: No apparent distress. Alert and oriented HEENT: Normal cephalic, atraumatic, external auditory canals are patent. Mucous membranes are moist EYES: Extraocular muscles are intact, pupil are equally round and reactive to light and accommodation. MUSCULOSKELETAL: Well developed , well nourished, good range of motion ENDOCRINE: No thyromegaly was palpated LYMPHATICS: No cervical chain or axillary nodes were noted HEMATOPOIETIC: No bruising NECK: Supple, no JVD, no thyromegaly was noted LUNGS: Coarse to auscultation bilaterally with bilateral rhonchi and crackles bilateral lung bases accessory muscle use and increasing work of breathing has been noted HEART: RRR, S!, S2 present. Peripheral pulses intact, no obvious murmurs noted ABDOMEN: Soft, nontender. Positive bowel sounds, no organomegaly, normal bowel sounds EXTREMITIES: Without clubbing, cyanosis, or edema. Pedal pulses intact. Negative Homans sign NEUROLOGIC: Normal speech and tone. A&O x 3, moves all extremities, no obvious focal deficits PSYCHIATRIC: Normal affect, normal mood. Stable SKIN: No ulcerations or rashes, good skin turgor, no jaundice VASCULAR: Good capillary refill, neurovascular bundle appears to be intact General: Alert, Oriented X3, Cooperative, mild distress Heart: No murmurs, Other (Tachycardic) Lungs: Crackles Abdomen: Soft Extremities: No clubbing Skin: No rashes Labs Labs: Laboratory Tests Test 08/31/20 21:13 09/01/20 07:16 09/01/20 10:52 09/01/20 15:03 Glucose (Fingerstick) 295 mg/dL (70-99) 296 mg/dL (70-99) 324 mg/dL (70-99) 245 mg/dL (70-99) Assessment and Plan Assessmemt and Plan Problems Medical Problems: (1) Bilateral pneumonia Status: Acute (2) Community acquired pneumonia Status: Acute (3) COVID-19 Status: Acute (4) Hypoxia Status: Acute Comment Review of Relevant I have reviewed the following items kasey (where applicable) has been applied. Justifications for Admission Other Justification COVID 19 JAROD BRYANT MD Sep 01, 2020 15:51
[2020-09-01 19:00] VITALS: BP 138/89
--- NOTE | 2020-09-01 19:10 | PDOC ---
PULMONARY PROGRESS NOTES DATE: 09/01/20 TIME: 19:09 Subjective Patient feels better, 8 L of oxygen per nasal cannula Vitals Vital Signs Date Time Temp Pulse Resp B/P (MAP) Pulse Ox O2 Delivery O2 Flow Rate FiO2 09/01/20 15:00 96.9 75 24 124/74 (91) 97 Nasal Cannula 9.0 96.9 Comments visual exam done due to COVID-19 no soa, no leg edema, no rash ROS: No Chest Pain, No Increase Cough General: Alert Lungs: Crackles Skin: Dry Labs Laboratory Tests Test 08/30/20 20:42 08/31/20 07:19 08/31/20 11:02 08/31/20 15:03 Glucose (Fingerstick) 211 mg/dL (70-99) 249 mg/dL (70-99) 261 mg/dL (70-99) 236 mg/dL (70-99) Test 08/31/20 21:13 09/01/20 07:16 09/01/20 10:52 09/01/20 15:03 Glucose (Fingerstick) 295 mg/dL (70-99) 296 mg/dL (70-99) 324 mg/dL (70-99) 245 mg/dL (70-99) Laboratory Tests Test 08/31/20 21:13 09/01/20 07:16 09/01/20 10:52 09/01/20 15:03 Glucose (Fingerstick) 295 mg/dL (70-99) 296 mg/dL (70-99) 324 mg/dL (70-99) 245 mg/dL (70-99) Comments CT chest MPRESSION: Multifocal opacities throughout the bilateral lungs. Differential considerations would include bilateral infection including from viral etiology. A component of edema is not excluded given the groundglass component. Liver is low density which can be seen with fatty infiltration. Nondiagnostic evaluation for pulmonary embolus secondary to almost no contrast within the pulmonary arteries and motion. Prominent lymph nodes in the mediastinum and hilum could be reactive to the pulmonic process Impression . IMPRESSION: 1. Acute hypoxemic respiratory failure secondary to COVID-19 viral pneumonia./ ARDS/ ALI 2. COVID-[address] chest related to COVID-19. 4. Possible gram-positive, gram-negative pneumonia. 5. Hyperglycemia. 6. Morbid obesity. Plan . 6-minute walk, possible discharge in the a.m. Continue nasal cannula oxygen Follow CXR/ABG PRN COVID + on 08/13 Continue ABX with rocephin and azithromycin Continue steroids will need full 10 day course Remdesivir started per PCP finish full course Hyperglycemia per PCP DVT/GI PPX D/W RN and RT ALEJANDRA EDDY MD Sep 01, 2020 19:10
[2020-09-01] MEDS: cefTRIAXone IV Push 1 GM VIAL. IVP SCH (21:39)
[2020-09-01 23:00] VITALS: BP 147/80
[2020-09-02 03:00] VITALS: BP 125/77
[2020-09-02] MEDS: methylPREDNISolone SOD SUCC PF 40 MG/ML VIAL. IV SCH ×2 (06:39→13:51)
[2020-09-02] MEDS: guaiFENesin DM 200MG/20MG 10 ML SYRUP PO PRN (06:46)
[2020-09-02 07:50] VITALS: BP 140/85
[2020-09-02] MEDS: LACTOBACILLUS RHAMNOSUS GG 1 CAPSULE. PO SCH (08:21)
[2020-09-02] MEDS: CHOLECALCIFEROL (VITAMIN D3) 1,000 UNIT TABLET PO SCH (08:21)
[2020-09-02] MEDS: ZINC SULFATE 220 MG CAPSULE. PO SCH (08:21)
[2020-09-02] MEDS: SENNOSIDES/DOCUSATE 8.6/50MG TABLET. PO SCH (08:21)
[2020-09-02] MEDS: BENZONATATE 100 MG CAPSULE. PO SCH ×2 (08:22→13:50)
[2020-09-02] MEDS: ENOXAPARIN 40 MG/0.4 ML SYRINGE. SQ SCH (08:22)
[2020-09-02] MEDS: ASCORBIC ACID 500 MG TABLET PO SCH ×2 (08:22→13:51)
[2020-09-02] MEDS: INSULIN LISPRO 300 UNITS/3 ML VIAL. SQ SCH ×4 (08:41→12:16)
[2020-09-02] MEDS: INSULIN GLARGINE SYRINGE. SQ SCH (08:42)
[2020-09-02 11:08] VITALS: BP 148/79
[2020-09-02] MEDS ORDERED: PRED20TA PO ×2 (13:44→14:43)
--- NOTE | 2020-09-02 13:45 | DISCH ---
DISCHARGE INSTRUCTIONS Condition on Discharge Condition on Discharge: Stable Activity After Discharge Activity Instructions for Disc: Activity as tolerated Driving Instructions after Dis: Do not drive today Checks after Discharge Checks after discharge: Check blood press - daily Follow-Up Follow up with: PCP within 2 weeks of discharge Follow Up With: Pulmonology as needed JAROD BRYANT MD Sep 02, 2020 13:45
--- NOTE | 2020-09-02 14:41 | PDOC ---
PULMONARY PROGRESS NOTES DATE: 09/02/20 TIME: 14:40 Subjective Patient feels better, currently on 4 L of oxygen supplementation Vitals Vital Signs Date Time Temp Pulse Resp B/P (MAP) Pulse Ox O2 Delivery O2 Flow Rate FiO2 09/02/20 11:08 97.9 89 18 148/79 (102) 92 Nasal Cannula 7.0 97.9 Comments visual exam done due to COVID-19 no soa, no leg edema, no rash ROS: No Chest Pain, No Increase Cough General: Alert Lungs: Crackles Skin: Dry Labs Laboratory Tests Test 08/31/20 15:03 08/31/20 21:13 09/01/20 07:16 09/01/20 10:52 Glucose (Fingerstick) 236 mg/dL (70-99) 295 mg/dL (70-99) 296 mg/dL (70-99) 324 mg/dL (70-99) Test 09/01/20 15:03 09/01/20 19:39 09/02/20 07:58 09/02/20 11:51 Glucose (Fingerstick) 245 mg/dL (70-99) 287 mg/dL (70-99) 236 mg/dL (70-99) 283 mg/dL (70-99) Laboratory Tests Test 09/01/20 15:03 09/01/20 19:39 09/02/20 07:58 09/02/20 11:51 Glucose (Fingerstick) 245 mg/dL (70-99) 287 mg/dL (70-99) 236 mg/dL (70-99) 283 mg/dL (70-99) Medications Active Scripts Medications Dose Route/Sig Max Daily Dose Days Date Category Comments CT chest MPRESSION: Multifocal opacities throughout the bilateral lungs. Differential considerations would include bilateral infection including from viral etiology. A component of edema is not excluded given the groundglass component. Liver is low density which can be seen with fatty infiltration. Nondiagnostic evaluation for pulmonary embolus secondary to almost no contrast within the pulmonary arteries and motion. Prominent lymph nodes in the mediastinum and hilum could be reactive to the pulmonic process Impression . IMPRESSION: 1. Acute hypoxemic respiratory failure secondary to COVID-19 viral pneumonia./ ARDS/ ALI 2. COVID-[address] pneumonia[address] chest related to COVID-19. 4. Possible gram-positive, gram-negative pneumonia. 5. Hyperglycemia. 6. Morbid obesity. Plan . Underwent 6-minute walk, requires 4 L continuously Follow-up in the office on 21 September at 3:30 PM Rx written not to return to work until seen in the office Patient completed a course of remdesivir and steroids ALEJANDRA EDDY MD Sep 02, 2020 14:41
[2020-09-02 14:49] VITALS: BP 132/73
== END 2020-09-02 15:49 | disposition home or self-care (01) | DRG 177 ==
LOC: ER 21:43 → 6 SOUTH 08-24 00:40 → 1 WEST ICU 08-25 10:50 → 6 SOUTH 08-30 21:26
PROVIDERS: ADMIT Family Medicine; ATTEND Family Medicine
PROC: XW033E5 Introduction of Remdesivir Anti-infective into Peripheral Vein, Percutaneous Approach, New Technology Group 5 (ICD-10-PCS; principal; 2020-08-24)
DX: U07.1 COVID-19 (principal); J12.82 Pneumonia due to coronavirus disease 2019; J80 Acute respiratory distress syndrome; Z68.42 Body mass index [BMI] 45.0-49.9, adult; E44.0 Moderate protein-calorie malnutrition; E87.6 Hypokalemia; E66.01 Morbid (severe) obesity due to excess calories; E86.0 Dehydration; E11.65 Type 2 diabetes mellitus with hyperglycemia; F40.240 Claustrophobia; J98.01 Acute bronchospasm
CPT/HCPCS: 36415; 36600; 71045; 71275; 80048; 80053; 80076; 82728; 82805; 82962; 83036; 83605; 83615; 83735; 83880; 84100; 84145; 84484; 85007; 85025; 85379; 87040; 87449; 87804; 94618; 94660; 94760; 96374; 96375; 99285; J0456; J0696; J1100; J1200; J1650; J1815; J1940; J2405; J2920; J3010; J7050; Q9967; 97110-GP; G0378; J7030

== ENCOUNTER → 2020-10-04 | Outpatient (CLI) | payer BC ==
[~2020-10-04] MED LIST: CONTRAST GIVEN. MC PRN; IOHEXOL 350 MG/ML 100 ML VIAL. IV ONE; IOHEXOL 350 MG/ML 100 ML VIAL. ONE; PRED20TA PO
--- NOTE | 2020-10-04 10:36 | RAD ---
CTA of the chest compared to prior exam dated August 232020 for pulmonary embolus on follow-up. TECHNIQUE AND FINDINGS: Contiguous CT images are obtained from the apex of diaphragm to the pelvic fl oor following administration of IV contrast in the systemic arterial phase. Sagittal and coronal MIPS are evaluated. FINDINGS: Heart size within normal limits. Stable appearing mediastinal adenopathy, with no lymph nod es meeting size or morphologic criteria for definite pathologic enlargement. Fatty liver. Evaluation of the upper abdominal organs is limited by phase of contrast administration, with no gross morpholog ic abnormalities of the visualized organs are identified. The previously seen widespread groundglass and consolidative lung disease, appears significantly improved today, with moderate residual groundgl ass infiltrates and smooth interstitial changes throughout all lungs, corresponding to the distributi on of previous disease. This suggests ongoing improvement of infectious or inflammatory pneumonitis a nd is less likely related to pulmonary edema. Some developing interstitial fibrosis may be occurring. No pleural effusions. No pneumothorax. No suspicious lung nodules or masses. No new lung parenchymal infiltrates. No main or lobar pulmonary arterial embolus and. Evaluation of segmental and subsegment al pulmonary embolus versus limited by systemic arterial phase of contrast. IMPRESSION: 1. Significantly improved but persistent widespread ground glass infiltrates mixed with mild intersti tial prominence in all lobes, corresponding to the distribution of prior disease. This finding is mos t indicative of improving infectious or inflammatory pneumonitis, perhaps with some developing inters titial fibrosis. No new lung parenchymal abnormalities. Follow-up CT scan in 3-6 months could be of b enefit. 2. Hepatomegaly and diffuse hepatic steatosis. 3. Limited exam for evaluation of pulmonary emboli due to systemic arterial phase of contrast ministr atsabi. PQRS Compliance Statement: One or more of the following individualized dose reduction techniques were utilized for this examinat ion: 1. Automated exposure control 2. Adjustment of the mA and/or kV according to patient size 3. Use of iterative reconstruction technique Electronically signed by: Chris Marquez MD (10/04/2020 10:33 AM) [id number]
--- NOTE | 2020-10-04 13:17 | CARD ---
MR#: [id number] Date of Study: 10/04/2020 Ordering Physician: ALEJANDRA EDDY, Referring Physician: ALEJANDRA EDDY Tech: Lorelei Salvador, [facility] APPROVED REPORT EXAM: Two-dimensional and M-mode echocardiogram with Doppler and color Doppler. Other Information Quality : AverageHR: 81bpm Rhythm : NSR INDICATION Dyspnea RISK FACTORS Hypertension Obesity Diabetes 2D DIMENSIONS Left Atrium(2D)4.7 (1.6-4.0cm)IVSd1.4 (0.7-1.1cm) Aortic Root(2D)3.5 (2.0-3.7cm)LVDd4.6 (3.9-5.9cm) LVOT Diameter2.4 (1.8-2.4cm)PWd1.4 (0.7-1.1cm) IVSs1.8 (0.8-1.2cm)LVDs3.5 (2.5-4.0cm) FS (%) 24.7 %PWs1.5 (0.8-1.2cm) SV49.0 mlLVEF(%)49.1 (>50%) Aortic Valve AoV Peak Srikanth.113.7cm/sAoV VTI19.0cm AO Peak GR.5.2mmHgAO Mean GR.3mmHg Mitral Valve MV E Tdhgaxye82.6cm/sMV DECEL [id number] MV A Upcgozkr29.4cm/sMV FYM47ph E/A Ratio1.2MVA (PHT)2.46cm2 TDI E/Lateral E'4.5E/Medial E'6.0 Pulmonary Valve PV Peak Spgaswsx252.9cm/sPV Peak Grad.7mmHg Tricuspid Valve TR P. Jciscmey400qr/sTR Peak Gr.24mmHg LEFT VENTRICLE The left ventricle is normal size. There is borderline to mild concentric left ventricular hypertroph y. The left ventricular systolic function is normal and the ejection fraction is within normal range. Estimated ejejction fraction 55-60%. There is normal LV segmental wall motion. The left ventricular diastolic function and filling is normal for age. RIGHT VENTRICLE The right ventricle is normal size. There is normal right ventricular wall thickness. The right ventr icular systolic function is normal. ATRIA The left atrium size is normal. The right atrium size is normal. The interatrial septum is intact wit h no evidence for an atrial septal defect or patent foramen ovale as noted on 2-D or Doppler imaging. AORTIC VALVE The aortic valve is normal in structure and function. Doppler and Color Flow revealed no significant aortic regurgitation. There is no significant aortic valvular stenosis. MITRAL VALVE The mitral valve is normal in structure and function. There is no evidence of mitral valve prolapse. There is no mitral valve stenosis. Doppler and Color-flow revealed trace mitral regurgitation. TRICUSPID VALVE The tricuspid valve is normal in structure and function. Doppler and Color Flow revealed mild tricusp id regurgitation. Estimated PAP 28-30 mmHg. There is no tricuspid valve stenosis. PULMONIC VALVE Doppler and Color Flow revealed trace pulmonic valvular regurgitation. There is no pulmonic valvular stenosis. GREAT VESSELS The aortic root is normal in size. The ascending aorta is normal in size. The IVC is normal in size a nd collapses >50% with inspiration. PERICARDIAL EFFUSION There is no evidence of significant pericardial effusion. Critical Notification Critical Value: No <Conclusion> The left ventricular systolic function is normal and the ejection fraction is within normal range. E stimated ejejction fraction 55-60%. There is normal LV segmental wall motion. Doppler and Color Flow revealed mild tricuspid regurgitation. Estimated PAP 28-30 mmHg. Signed by : Willy Gaspar, Electronically Approved : 10/04/2020 13:16:34
== END ==
LOC: CT 11:02
PROVIDERS: ATTEND Internal Medicine Pulmonary Disease
DX: I26.99 Other pulmonary embolism without acute cor pulmonale (principal); K76.0 Fatty (change of) liver, not elsewhere classified; R16.0 Hepatomegaly, not elsewhere classified
CPT/HCPCS: 71275; 93306; Q9967